=== PATIENT | male | born 1980 | race Caucasian/White ===

== ENCOUNTER 2016-05-16 23:32 | Inpatient (IN) | payer MEDICARE ==
[2016-05-16] MEDS ORDERED: ASPIRIN 81 MG CHEWABLE TABLETS PO ONE (23:46)
--- NOTE | 2016-05-16 23:46 | PDOC ---
History of Present Illness <Liane Olvera - Last Filed: 05/17/16 00:13> <Marley Morales - Last Filed: 05/17/16 02:01> - General Stated Complaint: CHEST PAIN Time Seen by Provider: 05/16/16 23:38 - History of Present Illness Initial Comments: 05/16/16 23:49 The patient is a 35 year old male with no past medical hx who presents to the ED complaining of palpitations since this evening. 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 He states he had some coffee at 20:00 this evening and started to feel palpitations shortly after. He denies any any associated chest pain, SOB, nausea, and vomiting. The patient states he has never experienced this in the past. The patient denies fever, chills Allergies: NKDA (Liane Olvera) Past History <Liane Olvera - Last Filed: 05/17/16 00:13> <Marley Morales - Last Filed: 05/17/16 02:01> - Past Medical History Allergies/Adverse Reactions: Allergies Allergy/AdvReac Type Severity Reaction Status Date / Time No Known Allergies Allergy Verified 05/17/16 00:02 Home Medications: Ambulatory Orders NK [No Known Home Medication] 05/17/16 Review of Systems - Review of Systems Able to Perform ROS?: Yes <Liane Olvera - Last Filed: 05/17/16 00:13> <Marley Morales - Last Filed: 05/17/16 02:01> - Review of Systems Comments:: 05/16/16 23:50 CONSTITUTIONAL: Absent: fever, chills, diaphoresis, generalized weakness, malaise, loss of appetite HEENT: Absent: rhinorrhea, nasal congestion, throat pain, throat swelling, difficulty swallowing, mouth swelling, ear pain, eye pain, visual Changes CARDIOVASCULAR: +Palpitations. Absent: chest pain, syncope, irregular heart rate, lightheadedness, peripheral edema RESPIRATORY: Absent: cough, shortness of breath, dyspnea with exertion, orthopnea, wheezing, stridor, hemoptysis GASTROINTESTINAL: Absent: abdominal pain, abdominal distension, nausea, vomiting, diarrhea, constipation, melena, hematochezia GENITOURINARY: Absent: dysuria, frequency, urgency, hesitancy, hematuria, flank pain, genital pain MUSCULOSKELETAL: Absent: myalgia, arthralgia, joint swelling SKIN: Absent: rash, itching, pallor NEUROLOGIC: Absent: headache, focal weakness or paresthesias, dizziness, unsteady gait, seizure, mental status changes, bladder or bowel incontinence PSYCHIATRIC: Absent: anxiety, depression, suicidal or homicidal ideation, hallucinations. (Liane Olvera) *Physical Exam <Liane Olvera - Last Filed: 05/17/16 00:13> <Marley Morales - Last Filed: 05/17/16 02:01> - Vital Signs Last Vital Signs Temp Pulse Resp BP Pulse Ox 97.9 F 99 H 16 141/79 97 05/16/16 23:45 05/17/16 00:36 05/17/16 00:36 05/17/16 00:36 05/17/16 00:36 - Physical Exam Comments: 05/16/16 23:51 GENERAL: +Tremulous. Well developed, well nourished. Awake and alert. No acute distress. HEENT: +Pterygium right eye. Normocephalic, atraumatic. PERRLA, EOMI. No conjunctival pallor. Moist mucous membranes. Oropharynx is clear. NECK: Supple. Full ROM. No JVD. Carotid pulses 2+ and symmetric, without bruits. No thyromegaly. No lymphadenopathy. CARDIOVASCULAR: +Tachycardic. Regular rhythm. No murmurs, rubs, or gallops. Distal pulses are 2 + and symmetric. PULMONARY: No evidence of respiratory distress. Lungs clear to auscultation bilaterally. No wheezing, rales or rhonchi. ABDOMINAL: Soft. Non-tender. Non-distended. No rebound or guarding. No organomegaly. Normoactive bowel sounds. MUSCULOSKELETAL Normal range of motion at all joints. No bony deformities or tenderness. No CVA tenderness. EXTREMITIES: No cyanosis. No clubbing. No edema. No calf tenderness. SKIN: Warm and dry. Normal capillary refill. No rashes. No jaundice. NEUROLOGICAL: Alert, awake, appropriate. Cranial nerves 2-12 intact. No deficits to light touch and temperature in face, upper extremities and lower extremities. No motor deficits in the in face, upper extremities and lower extremities. PSYCHIATRIC: Cooperative. Good eye contact. Appropriate mood and affect. (Liane Olvera) Heart Score/ECG Review <Liane Olvera - Last Filed: 05/17/16 00:13> <Marley Morales - Last Filed: 05/17/16 02:01> - ECG Impressions Comment:: 05/17/16 00:13 EKG Tachycardic at a rate of 120 BPM Incomplete RBBB T wave abnormalities (Liane Olvera) ED Treatment Course - LABORATORY CBC & Chemistry Diagram: 05/16/16 23:53 05/16/16 23:53 <Laine Olvera - Last Filed: 05/17/16 00:13> - LABORATORY CBC & Chemistry Diagram: 05/16/16 23:53 05/16/16 23:53 <Marley Morales - Last Filed: 05/17/16 02:01> - ADDITIONAL ORDERS Additional order review: Laboratory Results 05/16/16 05/16/16 05/16/16 23:53 23:53 23:53 INR 1.25 H D-Dimer 208 Sodium 135 L Potassium 3.0 L Chloride 95 L Carbon Dioxide 21 Anion Gap 19 H BUN 8 Creatinine 0.8 Creat Clearance w eGFR > 60 Random Glucose 269 H Calcium 8.1 L Magnesium 1.3 L Total Bilirubin 0.5 AST 117 H ALT 86 H Alkaline Phosphatase 208 H Creatine Kinase 415 H Creatine Kinase Index 1.5 CK-MB (CK-2) 6.538 H CK-MB (CK-2) Rel Index Cancelled Troponin I < 0.02 B-Natriuretic Peptide 8.27 Total Protein 8.0 Albumin 3.6 Lipase 184 05/16/16 23:53 RBC 4.52 MCV 93.3 MCHC 33.8 RDW 13.1 MPV 8.5 Neutrophils % 79.3 Lymphocytes % 11.2 Monocytes % 8.5 Eosinophils % 0.3 Basophils % 0.7 - RADIOLOGY Radiology Studies Ordered: Category Date Time Status CHEST X-RAY PORTABLE* [RAD] Stat Radiology 05/17/16 00:15 Taken - Medications Given in the ED: ED Medications Discontinued Medications Generic Name Dose Route Start Last Admin Trade Name Freq PRN Reason Stop Dose Admin Chlordiazepoxide HCl 25 mg 05/17/16 00:16 05/17/16 00:17 Librium - PO 05/17/16 00:17 25 mg NOW ONE Administration Potassium Chloride 40 meq 05/17/16 00:52 05/17/16 00:52 K-Dur - PO 05/17/16 00:53 40 meq NOW ONE Administration Medical Decision Making <Liane Olvera - Last Filed: 05/17/16 00:13> <Marley Morales - Last Filed: 05/17/16 02:01> - Medical Decision Making 05/17/16 01:43 35 yo male p/w tachycardia and tremulousness that started this evening. He thinks it's due to drinking too much coffee -he was working delivering food social history- no tobacco use, drinks etoh every day. 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 He denied shortness of breath -he did say he had pinching discomfort in left chest, no radiation -negative cardiac enzymes cxr no infiltrates,no ptx,no effusions -LABS REVIEWED found to be hypokalemic and received potassium supplementation -glucose is elevated -LFTs are elevated cbc- pt has thromcytopenia concern for alcohol withdrawal, pt given librium IMP- 1)CHEST PAIN 2) ALCOHOL WITHDRAWAL WITH DELIRIUM TREMORS 3) HYPERGLYCEMIA 4)HYPOKALEMIA SPOKE W DR Mg AND PT ADMITTED TO TELEMETRY (Marley Morales) *DC/Admit/Observation/Transfer <Liane Olvera - Last Filed: 05/17/16 00:13> - Discharge Dispostion Admit: Yes <Marley Morales - Last Filed: 05/17/16 02:01> Diagnosis at time of Disposition: Tachycardia, Hyperglycemia, Elevated LFTs, Hypokalemia, Other secondary thrombocytopenia, Delirium tremens - Discharge Dispostion Decision to Admit order Date/Time: Decision to Admit Order Category Date Time Status Decision to Admit to Hospital Routine Admission 05/17/16 01:27 Active - Attestations Scribe Attestion: 05/16/16 23:50 Documentation prepared by Liane Olvera, acting as medical radiation tech for Marley Morales MD/. (Liane Olvera)
[2016-05-16 23:47] VITALS: BMI 37.1
[2016-05-16] MEDS ORDERED: METOPROLOL TARTRATE 5 MG/5 ML VIAL IVPUSH ONE (23:50)
[2016-05-17 00:05] LABS: BASOPHIL 0.7 % (0-2.0); EOSINOPHIL 0.3 % (0-4.5); MCH 31.5 pg (25.7-33.7); MCHC 33.8 g/dl (32.0-35.9); MEAN CELL VOLUME 93.3 fl (80-96); MEAN PLT VOLUME 8.5 fl (7.5-11.1); NEUTROPHILS 79.3 % (42.8-82.8); PLATELET COUNT 82 K/MM3 (134-434); RDW 13.1 % (11.9-15.9); WHITE BLOOD COUNT 8.4 K/mm3 (4.0-10.0)
[2016-05-17] MEDS ORDERED: chlordiazePOXIDE HCL 25 MG CAPSULE ONE ×2 (00:14→11:36)
[2016-05-17] MEDS ORDERED: chlordiazePOXIDE HCL 25 MG CAPSULE PO ONE ×2 (00:16→01:25)
[2016-05-17 00:27] LABS: ALBUMIN 3.6 g/dl (3.4-5.0); ANION GAP 19 (8-16); BILIRUBIN,TOTAL 0.5 mg/dL (0.2-1.0); CALCIUM 8.1 mg/dL (8.5-10.1); CO2 21 mmol/L (21-32); CREATININE 0.8 mg/dL (0.7-1.3); GLUCOSE,RANDOM 269 mg/dL (74-106); MAGNESIUM 1.3 mg/dL (1.8-2.4); SGOT/AST 117 U/L (15-37); SGPT/ALT 86 U/L (12-78)
[2016-05-17 00:30] LABS: ALK PHOS 208 U/L (45-117); TROPONIN I < 0.02 ng/ml (0.00-0.05)
[2016-05-17 00:43] LABS: INR 1.25 (0.82-1.09); PROTHROMBIN TIME (PATIENT) 13.8 SEC (9.98-11.88)
[2016-05-17] MEDS ORDERED: POTASSIUM CHLORIDE TABS 20 MEQ TABLET.ER (FP) PO ONE (00:52)
[2016-05-17] MEDS ORDERED: POTASSIUM CHLORIDE 40 MEQ/30 ML UNIT DOSE CUP ONE ×2 (00:54→11:36)
[2016-05-17] MEDS ORDERED: chlordiazePOXIDE HCL 25 MG CAPSULE PO PRN (01:26)
[2016-05-17] MEDS ORDERED: MAGNESIUM SULF 50% (8.12 MEQ/2 ML-1 GM VIAL) IVPB ONE (01:35)
--- NOTE | 2016-05-17 01:46 | PN ---
<Roman Branhamjd - Last Filed: 05/17/16 01:46> Teaching Attending Note Name of Resident: Jonh Barrera ATTENDING PHYSICIAN STATEMENT I saw and evaluated the patient. I reviewed the resident's note and discussed the case with the resident. I agree with the resident's findings and plan as documented. SUBJECTIVE: OBJECTIVE: ASSESSMENT AND PLAN: <Marissa Fink - Last Filed: 05/17/16 02:45> Teaching Attending Note ATTENDING PHYSICIAN STATEMENT I saw and evaluated the patient. I reviewed the resident's note and discussed the case with the resident. I agree with the resident's findings and plan as documented. SUBJECTIVE: Patient is a 35 year old male with no past medical history who presented to the ED with palpitations after drinking coffee. Patient notes that he drinks 4-6 beers daily and his last drink was today and he also drank 32 oz of coffee. He notes that he developed palpitations and tremors shortly after drinking coffee. No cp, SOB or chest pressure. No lightheadedness, dizziness, blurry vision, vision changes, headache, fever, chills, vomiting, diarrhea or nausea. OBJECTIVE: VS: Last Vital Signs Temp Pulse Resp BP Pulse Ox 97.9 F 99 H 16 141/79 97 05/16/16 23:45 05/17/16 00:36 05/17/16 00:36 05/17/16 00:36 05/17/16 00:36 GEN: NAD HEENT: +Pterygium bilaterally, +acanthosis nigrans neck region. CARD: RRR, S1 S2 RESP: CTAB ABD: NT, BWS x4 EXT: -CCE, +tremulousness of bilateral upper extremities LABS: CBCD WBC 8.4 K/mm3 (4.0-10.0) 05/16/16 23:53 RBC 4.52 M/mm3 (4.00-5.60) 05/16/16 23:53 Hgb 14.2 GM/dL (11.7-16.9) 05/16/16 23:53 Hct 42.1 % (35.4-49) 05/16/16 23:53 MCV 93.3 fl (80-96) 05/16/16 23:53 MCHC 33.8 g/dl (32.0-35.9) 05/16/16 23:53 RDW 13.1 % (11.9-15.9) 05/16/16 23:53 Plt Count 82 K/MM3 (134-434) L 05/16/16 23:53 MPV 8.5 fl (7.5-11.1) 05/16/16 23:53 CMP Sodium 135 mmol/L (136-145) L 05/16/16 23:53 Potassium 3.0 mmol/L (3.5-5.1) L 05/16/16 23:53 Chloride 95 mmol/L (98-107) L 05/16/16 23:53 Carbon Dioxide 21 mmol/L (21-32) 05/16/16 23:53 Anion Gap 19 (8-16) H 05/16/16 23:53 BUN 8 mg/dL (7-18) 05/16/16 23:53 Creatinine 0.8 mg/dL (0.7-1.3) 05/16/16 23:53 Creat Clearance w eGFR > 60 (>60) 05/16/16 23:53 Calcium 8.1 mg/dL (8.5-10.1) L 05/16/16 23:53 Total Bilirubin 0.5 mg/dL (0.2-1.0) 05/16/16 23:53 AST 117 U/L (15-37) H 05/16/16 23:53 ALT 86 U/L (12-78) H 05/16/16 23:53 Alkaline Phosphatase 208 U/L (45-117) H 05/16/16 23:53 Total Protein 8.0 g/dl (6.4-8.2) 05/16/16 23:53 Albumin 3.6 g/dl (3.4-5.0) 05/16/16 23:53 ECG Sinus tachycardia Vent rate 120 Incomplete right bundle branch block ASSESSMENT AND PLAN: 35 year old male with no past medical history presents with palpitations found to be in sinus tachycardia and acute tremors with hx of alcohol abuse. 1. EtOH withdrawal - Librium protocol - CIWA - Detox consult - Banana bag - Thiamine 100 mg daily - Folic acid 1 mg daily 2. Hyperglycemia - Check A1C - ACHS Q4 3. Transaminitis - Hepatitis panel - Hepatic US - Most likely due to alcohol 4. Thrombocytopenia - Most likely due to alcohol liver dysfunction - Mild - Trend 5. DVT ppx - Low risk ambulate/SCDs Documentation prepared by GOYO YuanIBDavon, acting as medical delivery technician for Larissa Branham D.O., MD.
[2016-05-17] MEDS ORDERED: FOLIC ACID INJECTION - 1 MG, THIAMINE HCL 100 MG, MULTIVIT INJECTION ADULT 10 ML in SOD... IVPB ONE ×2 (02:00→02:08)
[2016-05-17] MEDS ORDERED: MAGNESIUM SULF 50% (8.12 MEQ/2 ML-1 GM VIAL) ONE (02:12)
--- NOTE | 2016-05-17 02:20 | HP ---
CHIEF COMPLAINT: palpitations HISTORY OF PRESENT ILLNESS: 35 y/o male with no past medical history came to hospital with a complain of palpitations which started around 9: 30pm and decreased after getting Lopressor in ED. Patient states that he drink 6 can of beer every day and and when he drinks coffee on top of it he develops palpitations and tremors. But today they were mor than last time so he came to ED. He also states that he sweats a lot, feel hot and his palm are always moist. Denies chest pain, sob, lightheadedness, dizziness, nausea, vomiting, burning micturation. Denies swelling in legs, yellow discoloration of eyes, denies. Denies easy bleeding. ER course was notable for: (1) cbc , cmp, (2)lopressor Recent Travel: no PAST MEDICAL HISTORY: no PAST SURGICAL HISTORY: no Social History: Smokin cig every day Alcohol: 6 cans every day since 2004 Drugs: no Family History: mother thyroid problem, Allergies No Known Allergies Allergy (Verified 05/17/16 00:02) HOME MEDICATIONS: Home Medications Medication Instructions Recorded NK [No Known Home Medication] 05/17/16 REVIEW OF SYSTEMS CONSTITUTIONAL: Absent: fever, chills, diaphoresis, generalized weakness, malaise, loss of appetite, weight change HEENT: Absent: rhinorrhea, nasal congestion, throat pain, throat swelling, difficulty swallowing, mouth swelling, ear pain, eye pain, visual changes CARDIOVASCULAR: Absent: chest pain, syncope, palpitations, irregular heart rate, lightheadedness , peripheral edema RESPIRATORY: Absent: cough, shortness of breath, dyspnea with exertion, orthopnea, wheezing, stridor, hemoptysis GASTROINTESTINAL: Absent: abdominal pain, abdominal distension, nausea, vomiting, diarrhea, constipation, melena, hematochezia GENITOURINARY: Absent: dysuria, frequency, urgency, hesitancy, hematuria, flank pain, genital pain MUSCULOSKELETAL: Absent: myalgia, arthralgia, joint swelling, back pain, neck pain SKIN: Absent: rash, itching, pallor HEMATOLOGIC/IMMUNOLOGIC: Absent: easy bleeding, easy bruising, lymphadenopathy, frequent infections ENDOCRINE: Absent: unexplained weight gain, unexplained weight loss, heat intolerance, cold intolerance NEUROLOGIC: Absent: headache, focal weakness or paresthesias, dizziness, unsteady gait, seizure, mental status changes, bladder or bowel incontinence PSYCHIATRIC: Absent: anxiety, depression, suicidal or homicidal ideation, hallucinations. PHYSICAL EXAMINATION GENERAL: Awake, alert, and fully oriented, in no acute distress. HEAD: Normal with no signs of trauma. EYES: pterygium in b/l eyes EARS, NOSE, THROAT: Ears normal, nares patent, oropharynx clear without exudates. DRy mucous membranes. NECK: Normal range of motion, supple without lymphadenopathy, JVD, or masses. acanthosis nigrans present on neck LUNGS: Breath sounds equal, clear to auscultation bilaterally. No wheezes, and no crackles. No accessory muscle use. HEART: Regular rate and rhythm, normal S1 and S2 without murmur, rub or gallop. ABDOMEN: Soft, nontender, not distended, normoactive bowel sounds, no guarding, no rebound, no masses. lower border of liver 1 cm below coastal margin, MUSCULOSKELETAL: Normal range of motion at all joints. No bony deformities or tenderness. No CVA tenderness. UPPER EXTREMITIES: 2+ pulses, warm, well-perfused. No cyanosis. No clubbing. Cap refill <2 seconds. No peripheral edema. tremors in b/l hand, moist to touch LOWER EXTREMITIES: 2+ pulses, warm, well-perfused. No calf tenderness. No peripheral edema. NEUROLOGICAL: Cranial nerves II-XII intact. Normal speech. Normal gait. PSYCHIATRIC: Cooperative. Good eye contact. Appropriate mood and affect. SKIN: Warm, dry, normal turgor, no rashes or lesions noted. ASSESSMENT/PLAN: 35 y/o alcoholic male with no past medical history came to hospital with a complain of palpitations after having coffee. Palpitations could be due to coffee, thyroid, alcohol syndrome, cardiogenic started on librium protocol thiamine 100mg po bid cardiac monitoring follow trop i follow tsh monitor vitals follow urine toxicology admit in tele Transaminitis could be due to alcohal liver ds follow liver function follow usg liver Thrombocytopenia could be secondary to liver ds follow platelets Hyperglycemeia with acanthosis nigricans Follow HbA1c Diabetic diet electrolyte imbalance hypokalemia and hypomagnesemia given kcl and mg in ed repeat electrolyte in am Fluid : on banana bag and ns 75 ml/hr electrolyte ; repeat in am nutrition diabetic diet dvt pro : not required due to thrombocytopenia, patient ambulatory gi pro : not required Dispo ; admit in tele Visit type - Emergency Visit Emergency Visit: Yes ED Registration Date: 05/17/16 Care time: The patient presented to the Emergency Department on the above date and was hospitalized for further evaluation of their emergent condition. - New Patient This patient is new to me today: Yes Date on this admission: 05/17/16 - Critical Care Critical Care patient: No
[2016-05-17] MEDS ORDERED: SODIUM CHLORIDE 1,000 ML IV SCH (02:30)
[2016-05-17 03:04] LABS: PLATELET COMMENT2 NO CLOTTING DETECTED; PLATELET ESTIMATE SLT DECREASED (NORMAL)
[2016-05-17] MEDS: chlordiazePOXIDE HCL 25 MG CAPSULE PO SCH ×2 (04:57→11:39)
[2016-05-17 05:36] LABS: URINE MARIJUANA THC NEGATIVE ng/ml (CUTOFF=50)
[2016-05-17 07:36] LABS: ALBUMIN 3.5 g/dl (3.4-5.0); ANION GAP 10 (8-16); CALCIUM 8.3 mg/dL (8.5-10.1); CO2 28 mmol/L (21-32); CREATININE 0.7 mg/dL (0.7-1.3); GLUCOSE,RANDOM 202 mg/dL (74-106); SGOT/AST 96 U/L (15-37); SGPT/ALT 79 U/L (12-78)
[2016-05-17 07:46] LABS: ALK PHOS 183 U/L (45-117); BILIRUBIN,TOTAL 0.9 mg/dL (0.2-1.0); THYROID STIMULATING HORMONE 0.66 uIU/ml (0.358-3.74); TOT PROT 7.9 g/dl (6.4-8.2)
[2016-05-17] MEDS ORDERED: POTASSIUM CHLORIDE 40 MEQ/30 ML UNIT DOSE CUP PO ONE (09:30)
[2016-05-17] MEDS ORDERED: THIAMINE HCL 100 MG TABLET (FP) PO SCH (10:00)
--- NOTE | 2016-05-17 14:00 | CON.CARD ---
Consult Consult Specialty:: Cardiology Referred by:: Hospitalist Medicine Reason for Consultation:: Palpitations - History of Present Illness Chief Complaint: Palpitations History of Present Illness: 35 y/o male with h/o ETOH dependence presented with palpitations and tremulousness decreased after getting Lopressor in ED. Patient states that he drink 6 cans of beer every day and and when he drinks coffee on top of it. He denies chest pain, dyspnea, near or true syncope, orthopnea, PND or LE edema. - History Source History Provided By: Patient Limitations to Obtaining History: No Limitations - Alcohol/Substance Use Hx Alcohol Use: Yes (6 BEERS DAILY-LAST DRINK TU) - Smoking History Smoking history: Current every day smoker Have you smoked in the past 12 months: No Aproximately how many cigarettes per day: 6 Home Medications - Allergies Allergies/Adverse Reactions: Allergies Allergy/AdvReac Type Severity Reaction Status Date / Time No Known Allergies Allergy Verified 05/17/16 00:02 - Home Medications Home Medications: Ambulatory Orders NK [No Known Home Medication] 05/17/16 Review of Systems - Review of Systems Cardiovascular: reports: Palpitations Vital Signs: Vital Signs Temperature 98 F 05/17/16 05:38 Pulse Rate 77 05/17/16 13:09 Respiratory Rate 14 05/17/16 13:09 Blood Pressure 127/80 05/17/16 13:09 O2 Sat by Pulse Oximetry (%) 97 05/17/16 13:09 Constitutional: Yes: No Distress, Calm Neck: Yes: Supple Respiratory: Yes: Regular, CTA Bilaterally Gastrointestinal: Yes: Normal Bowel Sounds, Soft Cardiovascular: Yes: Regular Rate and Rhythm JVD: No Carotid Bruit: No Heart Sounds: Yes: S1, S2 Murmur: Yes: Systolic Murmur, Grade 1 Edema: No - Other Data Labs, Other Data: CBC, BMP 05/17/16 06:15 INR, PTT INR 1.25 (0.82-1.09) H 05/16/16 23:53 Troponin, BNP 05/17/16 05/17/16 06:15 12:52 Troponin I < 0.02 < 0.02 Troponin, BNP 05/17/16 05/17/16 06:15 12:52 Troponin I < 0.02 < 0.02 NSR Echo: Pending Imaging - Results Chest X-ray: Report Reviewed (NAD) Ultrasound: Report Reviewed (Hepatocellular disease suspect Alcohol hepatitis) Problem List - Problems (1) Elevated LFTs Code(s): R79.89 - OTHER SPECIFIED ABNORMAL FINDINGS OF BLOOD CHEMISTRY (2) Hypokalemia Code(s): E87.6 - HYPOKALEMIA (3) Other secondary thrombocytopenia Code(s): D69.59 - OTHER SECONDARY THROMBOCYTOPENIA (4) Alcohol dependence Code(s): F10.20 - ALCOHOL DEPENDENCE, UNCOMPLICATED Qualifiers: Substance use status: in withdrawal Complication of substance-induced condition: uncomplicated Qualified Code(s): F10.230 - Alcohol dependence with withdrawal, uncomplicated (5) Alcohol withdrawal Code(s): F10.239 - ALCOHOL DEPENDENCE WITH WITHDRAWAL, UNSPECIFIED Qualifiers : Complication of substance-induced condition: uncomplicated Qualified Code(s): F10.230 - Alcohol dependence with withdrawal, uncomplicated (6) Palpitations Code(s): R00.2 - PALPITATIONS (7) Alcoholic hepatitis Code(s): K70.10 - ALCOHOLIC HEPATITIS WITHOUT ASCITES Qualifiers: Ascites presence: without ascites Qualified Code(s): K70.10 - Alcoholic hepatitis without ascites (8) Type 2 diabetes mellitus Code(s): E11.9 - TYPE 2 DIABETES MELLITUS WITHOUT COMPLICATIONS Qualifiers: Diabetes mellitus complication status: without complication Diabetes mellitus terminologist insulin use: without terminologist use Qualified Code(s): E11.9 - Type 2 diabetes mellitus without complications Assessment/Plan 1. Palpitations and tremulousness referable to ETOH withdrawal 2. ETOH dependence 3. ETOH hepatitis 4. Thrombocytopenia referable to ETOH 5. Type 2 DM not well controlled P:1. F/u echocardiogram to assess LV and valve fxn 2. Beta blockers as you are 3. Tele monitor to eval for sustained arrhythmia, r/o PAF 4. Replete electrolytes, librium detox, vitamins 5. Thank you for consultative opportunity
--- NOTE | 2016-05-17 14:10 | EKG ---
Test Reason : Blood Pressure : / mmHG Vent. Rate : 079 BPM Atrial Rate : 079 BPM P-R Int : 188 ms QRS Dur : 098 ms QT Int : 392 ms P-R-T Axes : 039 056 013 degrees QTc Int : 449 ms NORMAL SINUS RHYTHM NORMAL ECG WHEN COMPARED WITH ECG OF 17-MAY-2016 00:27, NO SIGNIFICANT CHANGE WAS FOUND Confirmed by ALONDRA TILLEY MD ([id number]) on 05/17/2016 2:09:28 PM Referred By: Tito MULTANI Confirmed By:ALONDRA TILLEY MD
--- NOTE | 2016-05-17 14:12 | EKG ---
Test Reason : Blood Pressure : / mmHG Vent. Rate : 120 BPM Atrial Rate : 120 BPM P-R Int : 172 ms QRS Dur : 102 ms QT Int : 314 ms P-R-T Axes : 063 072 002 degrees QTc Int : 443 ms SINUS TACHYCARDIA POSSIBLE LEFT ATRIAL ENLARGEMENT INCOMPLETE RIGHT BUNDLE BRANCH BLOCK T WAVE ABNORMALITY, CONSIDER INFERIOR ISCHEMIA ABNORMAL ECG WHEN COMPARED WITH ECG OF 20-JUL-2008 16:07, VENT. RATE HAS INCREASED BY 58 BPM NON-SPECIFIC CHANGE IN ST SEGMENT IN LATERAL LEADS NONSPECIFIC T WAVE ABNORMALITY NOW EVIDENT IN LATERAL LEADS Confirmed by TREVA WERNER, ALONDRA ([id number]) on 05/17/2016 2:11:36 PM Referred By: Confirmed By:ALONDRA TILLEY MD
[2016-05-17] MEDS ORDERED: METOPROLOL SUCCINATE 25 MG TAB.SR.24H (FP) PO SCH (14:30)
--- NOTE | 2016-05-17 17:38 | DS ---
Physical Exam: SUBJECTIVE: Patient seen and examined OBJECTIVE: Vital Signs Period Temp Pulse Resp BP Sys/Thurman Pulse Ox Last 24 Hr 98 F 75-88 14-20 127-142/72-84 97-98 PHYSICAL EXAM GENERAL: The patient is awake, alert, and fully oriented, in no acute distress. HEAD: Normal with no signs of trauma. EYES: PERRL, extraocular movements intact, sclera anicteric, conjunctiva clear. ENT: Ears normal, nares patent, oropharynx clear without exudates, moist mucous membranes. NECK: Trachea midline, full range of motion, supple. LUNGS: Breath sounds equal, clear to auscultation bilaterally, no wheezes, no crackles, no accessory muscle use. HEART: Regular rate and rhythm, S1, S2 without murmur, rub or gallop. ABDOMEN: Soft, nontender, nondistended, normoactive bowel sounds, no guarding, no rebound, no hepatosplenomegaly, no masses. EXTREMITIES: 2+ pulses, warm, well-perfused, no edema. NEUROLOGICAL: Cranial nerves II through XII grossly intact. Normal speech, gait not observed. PSYCH: Normal mood, normal affect. SKIN: Warm, dry, normal turgor, no rashes or lesions noted. LABS Laboratory Results - last 24 hr 05/17/16 05/17/16 05/17/16 05:00 06:15 06:15 Sodium 137 Potassium 3.4 L Chloride 99 Carbon Dioxide 28 D Anion Gap 10 BUN 6 L D Creatinine 0.7 Creat Clearance w eGFR > 60 Random Glucose 202 H D Hemoglobin A1c % 9.4 H Calcium 8.3 L Magnesium 2.0 D Total Bilirubin 0.9 D AST 96 H ALT 79 H Alkaline Phosphatase 183 H Troponin I Total Protein 7.9 Albumin 3.5 TSH 0.66 Opiates Screen Negative Methadone Screen Negative Barbiturate Screen Negative Phencyclidine Screen Negative Ur Amphetamines Screen Negative MDMA (Ecstasy) Screen Negative Benzodiazepines Screen Negative Cocaine Screen Negative U Marijuana (THC) Screen Negative 05/17/16 05/17/16 06:15 12:52 Sodium Potassium Chloride Carbon Dioxide Anion Gap BUN Creatinine Creat Clearance w eGFR Random Glucose Hemoglobin A1c % Calcium Magnesium Total Bilirubin AST ALT Alkaline Phosphatase Troponin I < 0.02 < 0.02 Total Protein Albumin TSH Opiates Screen Methadone Screen Barbiturate Screen Phencyclidine Screen Ur Amphetamines Screen MDMA (Ecstasy) Screen Benzodiazepines Screen Cocaine Screen U Marijuana (THC) Screen HOSPITAL COURSE: Date of Admission:05/17/16 Date of Discharge: 05/17/16 Discharge Summary Reason For Visit: TACHYCARDIA,HYPERGLYCEMIA, ELEVATED LFT'S Current Active Problems Alcohol dependence (Acute) Alcohol withdrawal (Acute) Alcoholic hepatitis (Acute) Delirium tremens (Acute) Elevated LFTs (Acute) Hyperglycemia (Acute) Hypokalemia (Acute) Other secondary thrombocytopenia (Acute) Palpitations (Acute) Tachycardia (Acute) Type 2 diabetes mellitus (Acute) Condition: Stable - Instructions Diet, Activity, Other Instructions: Please return to the ED for any new, persistent, or worsening symptoms. Follow up with your doctor in 1 week, referral enclosed 2 [facility] [place] the clinic is called [facility] care Follow up with shaker tender in 1 week, you will need your doctor to give you a referral for further work up, you will need a holter monitoring of your heart rhythm Stop drinking alcohol it is affecting your liver and your heart. You have uncontrolled diabetes and will need to see your primary care doctor for close follow up. You will also need to start exercising and eating healthy foods. No more greasy, fatty, or high salt foods. Referrals: Maricruz Rodriges MD [Staff Physician] - Disposition: HOME
[2016-05-17 17:43] VITALS: BP 133/91; PULSE 81; TEMP 97.8
--- NOTE | 2016-05-17 18:08 | PN ---
[facility] Progress Note Note: Pt. was d/c home before he was seen.
[2016-05-18] MEDS ORDERED: chlordiazePOXIDE HCL 25 MG CAPSULE PO SCH (05:00)
--- NOTE | 2016-05-18 10:56 | EKG ---
Test Reason : Blood Pressure : / mmHG Vent. Rate : 099 BPM Atrial Rate : 099 BPM P-R Int : 182 ms QRS Dur : 102 ms QT Int : 354 ms P-R-T Axes : 036 056 -05 degrees QTc Int : 454 ms NORMAL SINUS RHYTHM POSSIBLE LEFT ATRIAL ENLARGEMENT INCOMPLETE RIGHT BUNDLE BRANCH BLOCK T WAVE ABNORMALITY, CONSIDER INFERIOR ISCHEMIA ABNORMAL ECG WHEN COMPARED WITH ECG OF 16-MAY-2016 23:37, NON-SPECIFIC CHANGE IN ST SEGMENT IN ANTEROLATERAL LEADS Confirmed by ANNAMARIA KIRBY MD ([id number]) on 05/18/2016 10:55:58 AM Referred By: Confirmed By:ANNAMARIA KIRBY MD
[2016-05-19] MEDS ORDERED: chlordiazePOXIDE 5 MG CAPSULE PO SCH (05:00)
== END 2016-05-17 17:40 | disposition home or self-care (01) | DRG 201 ==
LOC: JER 23:32 → JERBED 05-17 01:27
PROVIDERS: ADMIT Internal Medicine; ATTEND Registered Nurse Emergency
DX: R00.2 Palpitations (principal); F10.231 Alcohol dependence with withdrawal delirium; D69.59 Other secondary thrombocytopenia; E83.42 Hypomagnesemia; E11.65 Type 2 diabetes mellitus with hyperglycemia; K70.10 Alcoholic hepatitis without ascites; E87.6 Hypokalemia; R74.0 Nonspecific elevation of levels of transaminase and lactic acid dehydrogenase [LDH]; Z72.0 Tobacco use; L83 Acanthosis nigricans
CPT/HCPCS: 36415; 71010-TC; 76705-TC; 80053; 80074; 80307; 82550; 82553; 83036; 83690; 83735; 83880; 84443; 84484; 85025; 85379; 85610; 93005; 93010; 93306-TC; 99285-25

== ENCOUNTER 2016-09-09 14:55 | Emergency (ER) | payer SELFPAY ==
[2016-09-09 14:59] VITALS: BMI 35.5
--- NOTE | 2016-09-09 15:32 | PDOC ---
History of Present Illness - General History Source: Patient Exam Limitations: No Limitations <Oralia Hu - Last Filed: 09/09/16 16:10> - General History Source: Patient Exam Limitations: No Limitations <Tay Tejadaole - Last Filed: 09/09/16 17:19> - General Chief Complaint: Palpitations Stated Complaint: CHEST PAIN Time Seen by Provider: 09/09/16 15:04 - History of Present Illness Initial Comments: 09/09/16 16:11 The patient is a 36 year old male with past medical history of NIDDM, EtOH abuse , and psoriasis who arrives to the ED secondary to an episode of palpitations which began at work about an hour ago. The patient states that the palpitations were very severe for the first five minutes but began to lessen in severity over the past hour. He reports feeling short of breath as well. The patient reports having similar episodes within the past month. 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 The patient denies any LOC or chest pain. He denies any fever, chills, nausea, vomiting, diarrhea, cough, or urinary symptoms. Surgical Hx: None Allergies: None Social Hx: EtOH abuse (2 glasses of wine yesterday), former smoker (quit this May), denies drug abuse PCP: Vic Da Silva ([facility]) Past History <Oralia Hu - Last Filed: 09/09/16 16:10> - Past Medical History Diabetes: Yes - Psycho/Social/Smoking Cessation Hx Anxiety: No Suicidal Ideation: No Smoking History: Never smoked Have you smoked in the past 12 months: Yes Number of Cigarettes Smoked Daily: 6 If you are a former smoker, when did you quit?: 2 MO 'Breaking Loose' booklet given: 05/17/16 Hx Alcohol Use: No Drug/Substance Use Hx: No Substance Use Type: None <Tanna Tejada - Last Filed: 09/09/16 17:19> - Past Medical History Allergies/Adverse Reactions: Allergies Allergy/AdvReac Type Severity Reaction Status Date / Time No Known Allergies Allergy Verified 09/09/16 14:58 Home Medications: Ambulatory Orders Folic Acid 1 mg PO DAILY 07/30/16 Metformin HCl 500 mg PO DAILY 07/30/16 Thiamine HCl [Vitamin B1] 100 mg PO DAILY 07/30/16 Review of Systems - Review of Systems Able to Perform ROS?: Yes All Other Systems: Reviewed and Negative <Oralia Hu - Last Filed: 09/09/16 16:10> <Tanna Tejada - Last Filed: 09/09/16 17:19> - Review of Systems Comments:: 09/09/16 16:11 GENERAL/CONSTITUTIONAL: No fever or chills. No weakness. HEAD, EYES, EARS, NOSE AND THROAT: No change in vision. No ear pain or discharge. No sore throat. CARDIOVASCULAR: No chest pain or shortness of breath. RESPIRATORY: Present: palpitations No cough, wheezing, or hemoptysis. GASTROINTESTINAL: No nausea, vomiting, diarrhea or constipation. GENITOURINARY: No dysuria, frequency, or change in urination. MUSCULOSKELETAL: No joint or muscle swelling or pain. No neck or back pain. SKIN: No rash NEUROLOGIC: No headache, vertigo, loss of consciousness, or change in strength/ sensation. ENDOCRINE: No increased thirst. No abnormal weight change. HEMATOLOGIC/LYMPHATIC: No anemia, easy bleeding, or history of blood clots. ALLERGIC/IMMUNOLOGIC: No hives or skin allergy. (Oralia Hu) *Physical Exam <Oralia Hu - Last Filed: 09/09/16 16:10> <Tanna Tejada - Last Filed: 09/09/16 17:19> - Vital Signs Last Vital Signs Temp Pulse Resp BP Pulse Ox 98.7 F 77 19 124/82 97 09/09/16 14:56 09/09/16 16:50 09/09/16 16:50 09/09/16 16:50 09/09/16 16:50 - Physical Exam Comments: 09/09/16 16:12 GENERAL: Awake, alert, and fully oriented, in no acute distress HEAD: No signs of trauma EYES: PERRLA, EOMI, sclera anicteric, conjunctiva clear ENT: Auricles normal inspection, hearing grossly normal, nares patent, oropharynx clear without exudates. Moist mucosa NECK: Normal ROM, supple, no lymphadenopathy, JVD, or masses LUNGS: Breath sounds equal, clear to auscultation bilaterally. No wheezes, and no crackles HEART: Regular rate and rhythm, normal S1 and S2, no murmurs, rubs or gallops ABDOMEN: Soft, nontender, normoactive bowel sounds. No guarding, no rebound. No masses EXTREMITIES: Normal range of motion, no edema. No clubbing or cyanosis. No cords, erythema, or tenderness NEUROLOGICAL: Cranial nerves II through XII grossly intact. Normal speech, normal gait SKIN: Deformity on the skin of the scalp. Warm, Dry, normal turgor. (Oralia Hu) Heart Score/ECG Review #1 ECG reviewed & interpreted by me at: 15:32 General ECG Interpretation: Sinus Rhythm, Normal Rate, Normal Intervals, No acute ischemic changes <Tanna Tejada - Last Filed: 09/09/16 17:19> ED Treatment Course - LABORATORY CBC & Chemistry Diagram: 09/09/16 15:26 09/09/16 15:26 <julesOralia - Last Filed: 09/09/16 16:10> - LABORATORY CBC & Chemistry Diagram: 09/09/16 15:26 09/09/16 15:26 <Tanna Tejada - Last Filed: 09/09/16 17:19> - ADDITIONAL ORDERS Additional order review: Laboratory Results 09/09/16 15:26 Sodium 142 Potassium 3.9 Chloride 107 Carbon Dioxide 25 Anion Gap 10 BUN 10 D Creatinine 0.7 Creat Clearance w eGFR > 60 Random Glucose 138 H Calcium 8.5 Total Bilirubin 0.3 D AST 58 H D ALT 77 D Alkaline Phosphatase 121 H D Total Protein 7.6 Albumin 3.8 09/09/16 15:26 RBC 4.30 MCV 92.6 MCHC 33.6 RDW 13.6 MPV 9.4 Neutrophils % 66.4 Lymphocytes % 22.5 D Monocytes % 8.2 Eosinophils % 1.9 D Basophils % 1.0 Medical Decision Making <julesOralia - Last Filed: 09/09/16 16:10> <Tanna Tejada - Last Filed: 09/09/16 17:19> - Medical Decision Making 09/09/16 15:26 A portion of this note was documented by scribe services under my direction. I have reviewed the details of the note, within reason, and agree with the documentation with the following case summary and management plan written by me. Nursing documentation reviewed and incorporated into medical decision making This is a 36-year-old male with a history of kym-[id number]-ioxksmhlg diabetes, possible psoriasis who presents to the emergency department with a complaint of palpitations. Patient states his symptoms were severe for approximately 5 minutes while at work but lasted possibly one hour. He had absolutely no chest pain. No When his heart was racing, he noted he was short of breath. He's had no fever no chills. No recent travel. Patient was admitted to the hospital for similar symptoms, seen by cardiology. Patient was then seen in the emergency department for the same thing. He has not followed up with cardiology as an outpatient. He did see his primary care physician who told him he needed his thyroid evaluated. He is scheduled for a follow-up appointment in September. No palpitations while his EKG was being performed On examination: RRR CTA No abd tenderness No lower extremity edema Pt has hypertrophic scalp on the back of his head Will do labs, EKG, TSH Re assess 09/09/16 16:37 Laboratory Tests 07/30/16 07/30/16 09/09/16 20:37 20:37 15:26 WBC 7.4 4.9 D Hgb 14.2 13.4 Hct 41.6 39.8 Plt Count 94 L 95 L Anion Gap 9 BUN Creatinine 0.8 Random Glucose 169 H AST 46 H D ALT 48 D 09/09/16 15:26 WBC Hgb Hct Plt Count Anion Gap 10 BUN 10 D Creatinine 0.7 Random Glucose 138 H AST 58 H D ALT 77 D 09/09/16 16:41 TSH pending Will (Tanna Tejada) *DC/Admit/Observation/Transfer <Oralia Hu - Last Filed: 09/09/16 16:10> - Discharge Dispostion Admit: No <Tanna Tejada - Last Filed: 09/09/16 17:19> Diagnosis at time of Disposition: Palpitations - Discharge Dispostion Disposition: HOME Condition at time of disposition: Stable - Referrals Referrals: Nir Duncan MD [Staff Physician] - - Patient Instructions Printed Discharge Instructions: DI for Palpitations Additional Instructions: Thank you for coming in to the ER today You need to follow up with your primary care physician You also need to follow up with the cleaning staff supervisor Return to the ER for any other concerns or complaints Print Language: PORTUGUESE - Attestations Scribe Attestion: 09/09/16 16:13 Documentation prepared by Oralia Hu, acting as neuropsychology medical consultant for Tanna Tejada MD. (Oralia Hu)
[2016-09-09 15:55] LABS: EOSINOPHIL 1.9 % (0-4.5); MCH 31.1 pg (25.7-33.7); MCHC 33.6 g/dl (32.0-35.9); MEAN CELL VOLUME 92.6 fl (80-96); MEAN PLT VOLUME 9.4 fl (7.5-11.1); NEUTROPHILS 66.4 % (42.8-82.8); PLATELET COUNT 95 K/MM3 (134-434); RDW 13.6 % (11.9-15.9); WHITE BLOOD COUNT 4.9 K/mm3 (4.0-10.0)
[2016-09-09 16:03] LABS: ALBUMIN 3.8 g/dl (3.4-5.0); ALK PHOS 121 U/L (45-117); ANION GAP 10 (8-16); BILIRUBIN,TOTAL 0.3 mg/dL (0.2-1.0); CALCIUM 8.5 mg/dL (8.5-10.1); CO2 25 mmol/L (21-32); CREATININE 0.7 mg/dL (0.7-1.3); GLUCOSE,RANDOM 138 mg/dL (74-106); SGOT/AST 58 U/L (15-37); SGPT/ALT 77 U/L (12-78); TOT PROT 7.6 g/dl (6.4-8.2)
[2016-09-09 17:43] VITALS: BP 125/81; PULSE 81; TEMP 98
[2016-09-09 17:52] LABS: THYROID STIMULATING HORMONE 0.39 uIU/ml (0.358-3.74)
--- NOTE | 2016-09-10 17:26 | EKG ---
Test Reason : Blood Pressure : / mmHG Vent. Rate : 094 BPM Atrial Rate : 094 BPM P-R Int : 180 ms QRS Dur : 088 ms QT Int : 338 ms P-R-T Axes : 042 057 015 degrees QTc Int : 422 ms NORMAL SINUS RHYTHM NORMAL ECG WHEN COMPARED WITH ECG OF 30-JUL-2016 18:20, NO SIGNIFICANT CHANGE WAS FOUND Confirmed by ALONDRA TILLEY MD ([id number]) on 09/10/2016 5:25:50 PM Referred By: Confirmed By:ALONDRA TILLEY MD
== END 2016-09-09 17:45 | disposition home or self-care (01) ==
LOC: JER 14:55
DX: R00.2 Palpitations (principal); E11.9 Type 2 diabetes mellitus without complications; Z79.84 Long term (current) use of oral hypoglycemic drugs
CPT/HCPCS: 36415; 80053; 84443; 85025; 93005; 93010; 99284-25

== ENCOUNTER 2016-10-03 20:43 | Emergency (ER) | payer SELFPAY ==
[2016-10-03 21:09] VITALS: BMI 35.5
[2016-10-03] MEDS ORDERED: ASPIRIN 81 MG CHEWABLE TABLETS PO ONE (22:33)
--- NOTE | 2016-10-03 22:33 | PDOC ---
History of Present Illness <Piper Silva - Last Filed: 10/04/16 00:28> <Marley Morales - Last Filed: 10/04/16 00:38> - General Chief Complaint: Palpitations Stated Complaint: PALPITATION Time Seen by Provider: 10/03/16 21:41 - History of Present Illness Initial Comments: 10/04/16 00:28 Patient is a 36 year old male with significant medical hx of NIDDM who is presenting to the ED with one day of palpitations. Patient reports that his symptoms began today today after having a few glasses of orange juice and a soda. He complains of feeling shaky and palpitations that feel as if his heart is racing. Patient denies any chest pain, shortness of breath, abdominal pain, lightheadedness, syncope, visual changes, nausea, or vomiting. The patient has been here on 09/09 for similar complaint. He received thyroid function test that day and TSH was normal. PCP: Maricruz Rivera MD (Piper Silva) Past History <Piper Silva - Last Filed: 10/04/16 00:28> - Past Medical History Diabetes: Yes - Psycho/Social/Smoking Cessation Hx Anxiety: No Suicidal Ideation: No Smoking History: Former smoker Have you smoked in the past 12 months: No Number of Cigarettes Smoked Daily: 6 If you are a former smoker, when did you quit?: 05/2015 Information on smoking cessation initiated: No 'Breaking Loose' booklet given: 05/17/16 Hx Alcohol Use: No Drug/Substance Use Hx: No Substance Use Type: None <Marley Morales - Last Filed: 10/04/16 00:38> - Past Medical History Allergies/Adverse Reactions: Allergies Allergy/AdvReac Type Severity Reaction Status Date / Time No Known Allergies Allergy Verified 09/09/16 14:58 Home Medications: Ambulatory Orders Folic Acid 1 mg PO DAILY 07/30/16 Metformin HCl 500 mg PO DAILY 07/30/16 Thiamine HCl [Vitamin B1] 100 mg PO DAILY 07/30/16 Review of Systems <Piper Silva - Last Filed: 10/04/16 00:28> <Marley Morales - Last Filed: 10/04/16 00:38> - Review of Systems Comments:: 10/04/16 00:33 CONSTITUTIONAL: Present: feeling "shaky" Absent: fever, chills, diaphoresis, generalized weakness, malaise, loss of appetite HEENT: Absent: rhinorrhea, nasal congestion, throat pain, throat swelling, difficulty swallowing, mouth swelling, ear pain, eye pain, visual changes CARDIOVASCULAR: Present: palpitations, irregular heart rate Absent: chest pain, syncope, lightheadedness, peripheral edema RESPIRATORY: Absent: cough, shortness of breath, dyspnea with exertion, orthopnea, wheezing, stridor, hemoptysis GASTROINTESTINAL: Absent: abdominal pain, abdominal distension, nausea, vomiting, diarrhea, constipation, melena, hematochezia GENITOURINARY: Absent: dysuria, frequency, urgency, hesitancy, hematuria, flank pain, genital pain MUSCULOSKELETAL: Absent: myalgia, arthralgia, joint swelling SKIN: Absent: rash, itching, pallor HEMATOLOGIC/IMMUNOLOGIC: Absent: easy bleeding, easy bruising, lymphadenopathy, frequent infections ENDOCRINE: Absent: unexplained weight gain, unexplained weight loss, heat intolerance, cold intolerance NEUROLOGIC: Absent: headache, focal weakness or paresthesia, dizziness, unsteady gait, seizure, mental status changes, bladder or bowel incontinence. PSYCHIATRIC: Absent: anxiety, depression, suicidal or homicidal ideation, hallucinations (Piper Silva) *Physical Exam <Piper Silva - Last Filed: 10/04/16 00:28> <Marley Morales - Last Filed: 10/04/16 00:38> - Vital Signs Last Vital Signs Temp Pulse Resp BP Pulse Ox 98.2 F 84 18 156/99 98 10/03/16 21:06 10/03/16 21:06 10/03/16 21:06 10/03/16 21:06 10/03/16 21:06 - Physical Exam Comments: 10/04/16 00:34 GENERAL: Well developed, well nourished. Awake and alert. No acute distress. HEENT: Normocephalic, atraumatic. PERRLA, EOMI. No conjunctival pallor. Bilateral pterygium. Sclera are non-icteric. Moist mucous membranes. Oropharynx is clear. NECK: Supple. Full ROM. No JVD. Carotid pulses 2+ and symmetric, without bruits. No thyromegaly. No lymphadenopathy. CARDIOVASCULAR: No tachycardia. Regular rate and rhythm. No murmurs, rubs, or gallops. Distal pulses are 2+ and symmetric. PULMONARY: No evidence of respiratory distress. Lungs clear to auscultation bilaterally. No wheezing, rales or rhonchi. ABDOMINAL: Soft. Non-tender. Non-distended. No rebound or guarding. No organomegaly. Normoactive bowel sounds. MUSCULOSKELETAL: Normal range of motion at all joints. No bony deformities or tenderness. No CVA tenderness. EXTREMITIES: No cyanosis. No clubbing. No edema. No calf tenderness. SKIN: Warm and dry. Normal capillary refill. No rashes. No jaundice. NEUROLOGICAL: Alert, awake, appropriate. Cranial nerves 2-12 intact. Normal speech. Gait is normal without ataxia. PSYCHIATRIC: Cooperative. Good eye contact. Appropriate mood and affect. (Piper Silva) Heart Score/ECG Review <Piper Silva - Last Filed: 10/04/16 00:28> <Marley Morales - Last Filed: 10/04/16 00:38> #1 10/04/16 00:35 Normal sinus rhythm at 64 bpm Down going in lead 3 (Piper Silva) ED Treatment Course - LABORATORY CBC & Chemistry Diagram: 10/03/16 23:41 10/03/16 23:41 <Piper Silva - Last Filed: 10/04/16 00:28> - LABORATORY CBC & Chemistry Diagram: 10/03/16 23:41 10/03/16 23:41 <Marley Morales - Last Filed: 10/04/16 00:38> - ADDITIONAL ORDERS Additional order review: Laboratory Results 10/03/16 10/03/16 23:41 23:41 INR 1.12 Sodium 139 Potassium 4.2 Chloride 101 Carbon Dioxide 29 Anion Gap 9 BUN 11 Creatinine 0.7 Creat Clearance w eGFR > 60 Random Glucose 100 D Calcium 8.8 Magnesium 2.0 D Total Bilirubin 0.5 D AST 40 H D ALT 57 D Alkaline Phosphatase 115 Creatine Kinase 106 Troponin I < 0.02 Total Protein 8.1 Albumin 4.1 10/03/16 23:41 RBC 4.70 MCV 91.8 MCHC 33.8 RDW 13.2 MPV 9.2 Neutrophils % 80.3 D Lymphocytes % 12.5 D Monocytes % 5.6 Eosinophils % 0.6 Basophils % 1.0 - RADIOLOGY Radiology Studies Ordered: Category Date Time Status CHEST X-RAY PORTABLE* [RAD] Stat Radiology 10/03/16 22:33 Taken - Medications Given in the ED: ED Medications Discontinued Medications Generic Name Dose Route Start Last Admin Trade Name [place] PRN Reason Stop Dose Admin Aspirin 162 mg 10/03/16 22:33 10/03/16 23:00 Asa - PO 10/03/16 22:34 162 mg ONCE ONE Administration *DC/Admit/Observation/Transfer <Piper Silva - Last Filed: 10/04/16 00:28> <Marley Morales - Last Filed: 10/04/16 00:38> Diagnosis at time of Disposition: Palpitations - Discharge Dispostion Disposition: HOME Condition at time of disposition: Stable - Referrals Referrals: Maricruz Rodriges MD [Primary Care Provider] - - Patient Instructions Printed Discharge Instructions: DI for Palpitations Additional Instructions: please followup with your regular physician - Attestations Scribe Attestion: 10/04/16 00:35 Documentation prepared by Piper Silva, acting as medical payment poster for Marley Morales MD. (Piper Silva)
[2016-10-03] MEDS ORDERED: ASPIRIN 81 MG CHEWABLE TABLETS ONE (23:43)
[2016-10-03 23:47] LABS: EOSINOPHIL 0.6 % (0-4.5); MCH 31.1 pg (25.7-33.7); MCHC 33.8 g/dl (32.0-35.9); MEAN CELL VOLUME 91.8 fl (80-96); MEAN PLT VOLUME 9.2 fl (7.5-11.1); NEUTROPHILS 80.3 % (42.8-82.8); PLATELET COUNT 107 K/MM3 (134-434); RDW 13.2 % (11.9-15.9)
[2016-10-04 00:06] LABS: INR 1.12 (0.82-1.09); PROTHROMBIN TIME (PATIENT) 12.3 SEC (9.98-11.88)
[2016-10-04 00:22] LABS: ALBUMIN 4.1 g/dl (3.4-5.0); ANION GAP 9 (8-16); BILIRUBIN,TOTAL 0.5 mg/dL (0.2-1.0); CALCIUM 8.8 mg/dL (8.5-10.1); CO2 29 mmol/L (21-32); CREATININE 0.7 mg/dL (0.7-1.3); GLUCOSE,RANDOM 100 mg/dL (74-106); SGOT/AST 40 U/L (15-37); SGPT/ALT 57 U/L (12-78); TOT PROT 8.1 g/dl (6.4-8.2)
[2016-10-04 00:24] LABS: ALK PHOS 115 U/L (45-117); TROPONIN I < 0.02 ng/ml (0.00-0.05)
[2016-10-04 00:59] VITALS: BP 150/94; PULSE 80; TEMP 98
--- NOTE | 2016-10-04 13:00 | EKG ---
Test Reason : Blood Pressure : / mmHG Vent. Rate : 064 BPM Atrial Rate : 064 BPM P-R Int : 180 ms QRS Dur : 090 ms QT Int : 382 ms P-R-T Axes : 011 044 011 degrees QTc Int : 394 ms NORMAL SINUS RHYTHM NORMAL ECG WHEN COMPARED WITH ECG OF 09-SEP-2016 15:02, NO SIGNIFICANT CHANGE WAS FOUND Confirmed by ALONDRA TILLEY MD ([id number]) on 10/04/2016 12:59:55 PM Referred By: Confirmed By:ALONDRA TILLEY MD
== END 2016-10-04 01:04 | disposition home or self-care (01) ==
LOC: JER 20:43
DX: R00.2 Palpitations (principal); E11.9 Type 2 diabetes mellitus without complications; Z79.84 Long term (current) use of oral hypoglycemic drugs
CPT/HCPCS: 36415; 71010-TC; 80053; 82550; 83735; 84484; 85025; 85610; 93005; 93010; 99283-25

== ENCOUNTER 2016-11-17 20:44 | Emergency (ER) | payer SELFPAY ==
[2016-11-17 20:51] VITALS: BP 164/94; PULSE 121; TEMP 98; BMI 36.3
[2016-11-17] MEDS ORDERED: SODIUM CHLORIDE 0.9% 500 ML INFUS.BAG IV ONE (21:22)
[2016-11-17 21:55] LABS: BASOPHIL 1.1 % (0-2.0); EOSINOPHIL 1.3 % (0-4.5); MCH 31.2 pg (25.7-33.7); MCHC 34.7 g/dl (32.0-35.9); MEAN CELL VOLUME 89.8 fl (80-96); MEAN PLT VOLUME 9.2 fl (7.5-11.1); NEUTROPHILS 71.6 % (42.8-82.8); PLATELET COUNT 114 K/MM3 (134-434); RDW 13.1 % (11.9-15.9); WHITE BLOOD COUNT 7.1 K/mm3 (4.0-10.0)
[2016-11-17 22:29] LABS: ALBUMIN 4.1 g/dl (3.4-5.0); ALK PHOS 116 U/L (45-117); ANION GAP 7 (8-16); BILIRUBIN,TOTAL 0.4 mg/dL (0.2-1.0); CALCIUM 8.9 mg/dL (8.5-10.1); CO2 27 mmol/L (21-32); CREATININE 0.8 mg/dL (0.7-1.3); GLUCOSE,RANDOM 117 mg/dL (74-106); SGPT/ALT 45 U/L (12-78); TOT PROT 8.1 g/dl (6.4-8.2)
[2016-11-17 22:31] LABS: SGOT/AST 37 U/L (15-37)
--- NOTE | 2016-11-17 22:46 | PDOC ---
History of Present Illness - General History Source: Patient Exam Limitations: No Limitations - History of Present Illness Initial Comments: 11/17/16 23:05 Patient is a 36 year old male with significant medical hx of NIDDM who is presenting to the ED with one day of palpitations. Patient reports that his symptoms began today today after while at work. He complains of feeling shaky and states that his heart is racing. Patient denies any chest pain, shortness of breath, abdominal pain, lightheadedness, syncope, visual changes, nausea, or vomiting. The patient has been here on 10/04 for a similar complaint. PCP: Maricruz Rivera MD <Hannah Morin - Last Filed: 11/17/16 23:05> <Radha Poe - Last Filed: 11/18/16 02:51> - General Chief Complaint: Chest Pain Stated Complaint: PALPITATIONS Time Seen by Provider: 11/17/16 21:14 Past History <Hannah Morin - Last Filed: 11/17/16 23:05> - Past Medical History Diabetes: Yes - Psycho/Social/Smoking Cessation Hx Anxiety: No Suicidal Ideation: No Smoking History: Former smoker Have you smoked in the past 12 months: No Number of Cigarettes Smoked Daily: 6 If you are a former smoker, when did you quit?: 05/2015 Information on smoking cessation initiated: No 'Breaking Loose' booklet given: 05/17/16 Hx Alcohol Use: No Drug/Substance Use Hx: No Substance Use Type: None <Radha Poe - Last Filed: 11/18/16 02:51> - Past Medical History Allergies/Adverse Reactions: Allergies Allergy/AdvReac Type Severity Reaction Status Date / Time No Known Allergies Allergy Verified 11/17/16 20:51 Home Medications: Ambulatory Orders Folic Acid 1 mg PO DAILY 07/30/16 Metformin HCl 500 mg PO DAILY 07/30/16 Thiamine HCl [Vitamin B1] 100 mg PO DAILY 07/30/16 Review of Systems - Review of Systems Able to Perform ROS?: Yes Comments:: 11/17/16 23:05 CONSTITUTIONAL: Absent: fever, chills, diaphoresis, generalized weakness, malaise, loss of appetite HEENT: Absent: rhinorrhea, nasal congestion, throat pain, throat swelling, difficulty swallowing, mouth swelling, ear pain, eye pain, visual Changes CARDIOVASCULAR: Present: chest pain, palpitations. Absent: syncope, irregular heart rate, lightheadedness, peripheral edema RESPIRATORY: Absent: cough, shortness of breath, dyspnea with exertion, orthopnea, wheezing, stridor, hemoptysis GASTROINTESTINAL: Absent: abdominal pain, abdominal distension, nausea, vomiting, diarrhea, constipation, melena, hematochezia GENITOURINARY: Absent: dysuria, frequency, urgency, hesitancy, hematuria, flank pain, genital pain MUSCULOSKELETAL: Absent: myalgia, arthralgia, joint swelling SKIN: Present: fungal infection to the back of head. Absent: pallor HEMATOLOGIC/IMMUNOLOGIC: Absent: easy bleeding, easy bruising, lymphadenopathy, frequent infections ENDOCRINE: Absent: unexplained weight gain, unexplained weight loss, heat intolerance, cold intolerance NEUROLOGIC: Absent: headache, focal weakness or paresthesias, dizziness, unsteady gait, seizure, mental status changes, bladder or bowel incontinence PSYCHIATRIC: Absent: anxiety, depression, suicidal or homicidal ideation, hallucinations. <Hannah Morin - Last Filed: 11/17/16 23:05> *Physical Exam - Vital Signs Last Vital Signs Temp Pulse Resp BP Pulse Ox 98.0 F 121 H 21 164/94 100 11/17/16 20:49 11/17/16 20:49 11/17/16 20:49 11/17/16 20:49 11/17/16 20:49 - Physical Exam Comments: 11/17/16 23:07 GENERAL: Well developed, well nourished. Awake and alert. No acute distress. HEENT: (+)Pterygium: Right eye - medial/lateral; Left eye - medial. Normocephalic, atraumatic. PERRLA, EOMI. No conjunctival pallor. Sclera are non-icteric. Moist mucous membranes. Oropharynx is clear. NECK: Supple. Full ROM. No JVD. Carotid pulses 2+ and symmetric, without bruits. No thyromegaly. No lymphadenopathy. CARDIOVASCULAR: Regular rate and rhythm. No murmurs, rubs, or gallops. Distal pulses are 2+ and symmetric. PULMONARY: No evidence of respiratory distress. Lungs clear to auscultation bilaterally. No wheezing, rales or rhonchi. ABDOMINAL: Soft. Non-tender. Non-distended. No rebound or guarding. No organomegaly. Normoactive bowel sounds. MUSCULOSKELETAL Normal range of motion at all joints. No bony deformities or tenderness. No CVA tenderness. EXTREMITIES: No cyanosis. No clubbing. No edema. No calf tenderness. SKIN: Warm and dry. Normal capillary refill. No rashes. No jaundice. NEUROLOGICAL: Alert, awake, appropriate.. PSYCHIATRIC: Cooperative. Good eye contact. Appropriate mood and affect. <Hannah Morin - Last Filed: 11/17/16 23:05> - Vital Signs Last Vital Signs Temp Pulse Resp BP Pulse Ox 98.0 F 121 H 21 164/94 100 11/17/16 20:49 11/17/16 20:49 11/17/16 20:49 11/17/16 20:49 11/17/16 20:49 <Radha Poe - Last Filed: 11/18/16 02:51> ED Treatment Course - LABORATORY CBC & Chemistry Diagram: 11/17/16 21:46 11/17/16 21:46 - ADDITIONAL ORDERS Additional order review: Laboratory Results 11/17/16 11/17/16 21:46 21:46 Sodium 140 Potassium 4.2 Chloride 106 Carbon Dioxide 27 Anion Gap 7 L BUN 16 D Creatinine 0.8 Creat Clearance w eGFR > 60 Random Glucose 117 H Calcium 8.9 Total Bilirubin 0.4 AST 37 ALT 45 D Alkaline Phosphatase 116 Total Protein 8.1 Albumin 4.1 TSH 0.40 D 11/17/16 21:46 RBC 4.80 MCV 89.8 MCHC 34.7 RDW 13.1 MPV 9.2 Neutrophils % 71.6 Lymphocytes % 19.8 D Monocytes % 6.2 Eosinophils % 1.3 D Basophils % 1.1 - Medications Given in the ED: ED Medications Discontinued Medications Generic Name Dose Route Start Last Admin Trade Name Freq PRN Reason Stop Dose Admin Sodium Chloride 1,000 ml 11/17/16 21:22 11/17/16 22:02 Normal Saline - IV 11/17/16 21:23 1,000 ml ONCE ONE Administration <Hannah Morin - Last Filed: 11/17/16 23:05> - LABORATORY CBC & Chemistry Diagram: 11/17/16 21:46 11/17/16 21:46 - ADDITIONAL ORDERS Additional order review: Laboratory Results 11/17/16 11/17/16 21:46 21:46 Sodium 140 Potassium 4.2 Chloride 106 Carbon Dioxide 27 Anion Gap 7 L BUN 16 D Creatinine 0.8 Creat Clearance w eGFR > 60 Random Glucose 117 H Calcium 8.9 Total Bilirubin 0.4 AST 37 ALT 45 D Alkaline Phosphatase 116 Total Protein 8.1 Albumin 4.1 TSH 0.40 D 11/17/16 21:46 RBC 4.80 MCV 89.8 MCHC 34.7 RDW 13.1 MPV 9.2 Neutrophils % 71.6 Lymphocytes % 19.8 D Monocytes % 6.2 Eosinophils % 1.3 D Basophils % 1.1 - Medications Given in the ED: ED Medications Discontinued Medications Generic Name Dose Route Start Last Admin Trade Name [place] PRN Reason Stop Dose Admin Sodium Chloride 1,000 ml 11/17/16 21:22 11/17/16 22:02 Normal Saline - IV 11/17/16 21:23 1,000 ml ONCE ONE Administration <Radha Poe - Last Filed: 11/18/16 02:51> Medical Decision Making - Medical Decision Making 11/17/16 22:58 Pt comes with tachycardia and palpitations that began suddenly at work. He appears anxious. 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 On exam, his HR came down to 104 with no treatment. He states that he feels better. Pt states that 6 months ago he was diagnosed with diabetes. He is compliant with his glucophage. He states that his PMD wanted to check him for thyroild disease as he has had tachycardia in the past.. EKG today is Sinus tachy; TSH is normal All labs normal No electrolyte imbalances. Pt has no fever and no chills. He has a large kerion on his acciput to the name of his neck. It has been ongoing for a year and he never sought treatment. <Radha Poe - Last Filed: 11/18/16 02:51> *DC/Admit/Observation/Transfer - Attestations Scribe Attestion: 11/17/16 23:12 Documentation prepared by Hannah Morin, acting as anesthesiology medical doctor for Radha Poe MD. <Hannah Morin - Last Filed: 11/17/16 23:05> - Discharge Dispostion Admit: No <Radha Poe - Last Filed: 11/18/16 02:51> Diagnosis at time of Disposition: Dehydration, Tachycardia, paroxysmal, Tinea kerion - Discharge Dispostion Disposition: HOME Condition at time of disposition: Stable - Referrals Referrals: Maricruz Rodriges MD [Primary Care Provider] - Robert Duvall MD [Staff Physician] - - Patient Instructions Printed Discharge Instructions: DI for Ambulatory Cardiac Monitoring, Tinea Capitis
[2016-11-18 00:21] LABS: ACETONE SERUM NEGATIVE (NEGATIVE)
--- NOTE | 2016-11-20 23:16 | EKG ---
Test Reason : Blood Pressure : / mmHG Vent. Rate : 101 BPM Atrial Rate : 101 BPM P-R Int : 172 ms QRS Dur : 088 ms QT Int : 348 ms P-R-T Axes : 045 064 028 degrees QTc Int : 451 ms SINUS TACHYCARDIA OTHERWISE NORMAL ECG WHEN COMPARED WITH ECG OF 03-OCT-2016 23:22, VENT. RATE HAS INCREASED BY 37 BPM Confirmed by LISBET GARCIA MD ([id number]) on 11/20/2016 11:15:54 PM Referred By: Confirmed By:LISBET GARCIA MD
== END 2016-11-18 00:20 | disposition home or self-care (01) ==
LOC: JER 20:44
DX: I47.9 Paroxysmal tachycardia, unspecified (principal); E86.0 Dehydration; B35.0 Tinea barbae and tinea capitis
CPT/HCPCS: 36415; 80053; 82009; 84443; 85025; 93005; 93010; 99283-25

== ENCOUNTER 2017-01-26 19:04 | Emergency (ER) | payer OTHER ==
[2017-01-26 19:15] VITALS: TEMP 98; BMI 38.0
--- NOTE | 2017-01-26 20:15 | PDOC ---
Attending Attestation - Resident Resident Name: Joe Sosa - HPI HPI: 01/26/17 22:06 Pt comes with palpitation and the same presentation he had when I saw him 2 months ago. Pt never followed with dermatology for his kerion and he never followed with cardiology for holter monitoring. - Physicial Exam PE: 01/28/17 00:04 Agree with resident exam - Medical Decision Making 01/28/17 00:04 He will be asked to follow with cards and dermatology.
--- NOTE | 2017-01-26 20:43 | PDOC ---
History of Present Illness - General Chief Complaint: Palpitations Stated Complaint: PALPITATIONS Time Seen by Provider: 01/26/17 20:08 History Source: Patient - History of Present Illness Initial Comments: 01/26/17 20:45 Patient is a 36 year old male with significant medical hx of NIDDM who is presenting to the ED with one day of palpitations. Patient reports that his symptoms began today today after while at work. He complains of feeling shaky and states that his heart is racing. Patient denies any chest pain, shortness of breath, abdominal pain, lightheadedness, syncope, visual changes, nausea, or vomiting. The patient has been here on 11/17/16 and 10/04 for a similar complaint. Patient states that he was recently told by his doctor to take his metformin every other day due to occasional low blood sugar. 01/26/17 21:01 Past History - Past Medical History Allergies/Adverse Reactions: Allergies Allergy/AdvReac Type Severity Reaction Status Date / Time No Known Allergies Allergy Verified 01/26/17 19:11 Home Medications: Ambulatory Orders Folic Acid 1 mg PO DAILY 07/30/16 Metformin HCl 500 mg PO DAILY 07/30/16 Thiamine HCl [Vitamin B1] 100 mg PO DAILY 07/30/16 Melatonin 5 mg PO HS 01/26/17 COPD: No Diabetes: Yes - Suicide/Smoking/Psychosocial Hx Smoking History: Former smoker Have you smoked in the past 12 months: Yes Number of Cigarettes Smoked Daily: 6 If you are a former smoker, when did you quit?: 05/2015 Information on smoking cessation initiated: No 'Breaking Loose' booklet given: 05/17/16 Hx Alcohol Use: No Drug/Substance Use Hx: No Substance Use Type: None Review of Systems - Review of Systems Able to Perform ROS?: Yes Constitutional: Yes: Diaphoresis HEENTM: No: Symptoms Reported Respiratory: No: Symptoms reported Cardiac (ROS): No: Symptoms Reported ABD/GI: No: Symptoms Reported, Constipated, Difficulty Swallowing, Nausea : No: Symptoms Reported Musculoskeletal: No: Symptoms Reported Integumentary: No: Symptoms Reported All Other Systems: Reviewed and Negative *Physical Exam - Vital Signs Last Vital Signs Temp Pulse Resp BP Pulse Ox 98 F 92 H 18 138/93 98 01/26/17 19:11 01/26/17 19:11 01/26/17 19:11 01/26/17 19:11 01/26/17 19:11 - Physical Exam General Appearance: Yes: Nourished, Appropriately Dressed. 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 negative: Chest Tender Cardiovascular: positive: Regular Rhythm, Regular Rate, S1, S2 ED Treatment Course - LABORATORY CBC & Chemistry Diagram: 01/26/17 20:20 01/26/17 20:20 - ADDITIONAL ORDERS Additional order review: Laboratory Results 01/26/17 01/26/17 20:20 20:20 Sodium 141 Potassium 4.2 Chloride 105 Carbon Dioxide 28 Anion Gap 8 BUN 10 D Creatinine 0.7 Creat Clearance w eGFR > 60 Random Glucose 105 Calcium 8.6 Total Bilirubin 0.7 D AST 72 H D ALT 77 D Alkaline Phosphatase 138 H Creatine Kinase 152 Troponin I < 0.02 Total Protein 8.0 Albumin 4.0 Urine Color Ltyellow Urine Appearance Clear Urine pH 6.0 Ur Specific [place] 1.011 Urine Protein Negative Urine Glucose (UA) Negative Urine Ketones Negative Urine Blood Negative Urine Nitrite Negative Urine Bilirubin Negative Urine Urobilinogen Negative 01/26/17 20:20 RBC 4.97 MCV 90.1 MCHC 33.9 RDW 14.0 MPV 9.5 Neutrophils % 66.5 Lymphocytes % 22.0 Monocytes % 8.1 Eosinophils % 2.4 D Basophils % 1.0 Medical Decision Making - Medical Decision Making 01/26/17 21:02 Patient is a 36 year old male with significant medical hx of NIDDM who is presenting to the ED with one day of palpitations.. EKG: Normal sinus rhythm 01/26/17 22:03 All labs within normal limits. Sugar controlled. Follow up with clinical office technician for Holster monitor placement to investigate random palpitations. *DC/Admit/Observation/Transfer Diagnosis at time of Disposition: Palpitation - Discharge Dispostion Disposition: HOME Admit: No - Referrals Referrals: Maricruz Rodriges MD [Primary Care Provider] - Robert Duvall MD [Staff Physician] - - Patient Instructions Printed Discharge Instructions: DI for Palpitations Additional Instructions: Follow up with your PCP tomorrow. Follow up tomorrow and make an appointment with Dr. Duvall for Holster monitor placement. Come back to the Er for any new, worsening or concerning symptom especially concerning chest pain, sweating, chills, dizziness and shortness of breath. - Post Discharge Activity
[2017-01-26 20:48] LABS: URINE APPEARANCE CLEAR; URINE BILIRUBIN NEGATIVE (NEGATIVE); URINE BLOOD NEGATIVE (NEGATIVE); URINE COLOR LTYELLOW; URINE GLUCOSE (UA) NEGATIVE (NEGATIVE); URINE KETONE NEGATIVE (NEGATIVE); URINE NITRITE NEGATIVE (NEGATIVE); URINE PROTEIN NEGATIVE (NEGATIVE); URINE UROBILINOGEN NEGATIVE mg/dL (0.2-1.0)
[2017-01-26 20:58] LABS: EOSINOPHIL 2.4 % (0-4.5); MCH 30.6 pg (25.7-33.7); MCHC 33.9 g/dl (32.0-35.9); MEAN CELL VOLUME 90.1 fl (80-96); MEAN PLT VOLUME 9.5 fl (7.5-11.1); NEUTROPHILS 66.5 % (42.8-82.8); PLATELET COUNT 115 K/MM3 (134-434); WHITE BLOOD COUNT 6.5 K/mm3 (4.0-10.0)
[2017-01-26 21:10] LABS: ANION GAP 8 (8-16); CALCIUM 8.6 mg/dL (8.5-10.1); CO2 28 mmol/L (21-32); GLUCOSE,RANDOM 105 mg/dL (74-106)
[2017-01-26 21:15] LABS: ALK PHOS 138 U/L (45-117); BILIRUBIN,TOTAL 0.7 mg/dL (0.2-1.0); CPK 152 IU/L (39-308); CREATININE 0.7 mg/dL (0.7-1.3); SGOT/AST 72 U/L (15-37); SGPT/ALT 77 U/L (12-78); TROPONIN I < 0.02 ng/ml (0.00-0.05)
[2017-01-26 22:23] VITALS: BP 148/90; PULSE 75
[2017-01-27 16:22] LABS: URINE LEUK ESTERASE Negative (NEGATIVE)
--- NOTE | 2017-01-29 11:39 | EKG ---
Test Reason : Blood Pressure : / mmHG Vent. Rate : 076 BPM Atrial Rate : 076 BPM P-R Int : 178 ms QRS Dur : 092 ms QT Int : 368 ms P-R-T Axes : 036 047 011 degrees QTc Int : 414 ms NORMAL SINUS RHYTHM NORMAL ECG WHEN COMPARED WITH ECG OF 26-JAN-2017 19:16, NO SIGNIFICANT CHANGE WAS FOUND Confirmed by ALONDRA TILLEY MD ([id number]) on 01/29/2017 11:38:46 AM Referred By: Confirmed By:ALONDRA TILLEY MD
--- NOTE | 2017-01-31 12:14 | EKG ---
Test Reason : Blood Pressure : / mmHG Vent. Rate : 087 BPM Atrial Rate : 087 BPM P-R Int : 174 ms QRS Dur : 088 ms QT Int : 354 ms P-R-T Axes : 035 054 016 degrees QTc Int : 425 ms NORMAL SINUS RHYTHM NORMAL ECG WHEN COMPARED WITH ECG OF 17-NOV-2016 20:55, NO SIGNIFICANT CHANGE WAS FOUND Confirmed by ALONDRA TILLEY MD ([id number]) on 01/31/2017 12:14:18 PM Referred By: Confirmed By:ALONDRA TILLEY MD
== END 2017-01-26 22:24 | disposition home or self-care (01) ==
LOC: JER 19:04
DX: R00.2 Palpitations (principal); E11.9 Type 2 diabetes mellitus without complications; Z79.84 Long term (current) use of oral hypoglycemic drugs
CPT/HCPCS: 36415; 80053; 81003; 82550; 82553; 84484; 85025; 93005; 93010; 99282-25

== ENCOUNTER 2017-03-18 23:03 | Emergency (ER) | payer OTHER ==
[2017-03-18 23:11] VITALS: BP 153/104; PULSE 92; TEMP 99.5; BMI 37.5
[2017-03-18] MEDS ORDERED: SODIUM CHLORIDE 0.9% 1000 ML INFUS.BAG IV ONE (23:40)
--- NOTE | 2017-03-18 23:52 | PDOC ---
History of Present Illness - General Chief Complaint: Chest Pain Stated Complaint: PALPITATIONS Time Seen by Provider: 03/18/17 23:19 History Source: Patient Exam Limitations: No Limitations - History of Present Illness Initial Comments: 03/19/17 00:07 The patient is a 36M with a PMH of DM who presents to the ED with complaints of palpitations and CP. The patient states that around 1930 he had an episode of lightheadedness and diaphoresis and then palpitations. He checked his BGL and it was 58. He drank some coca-cola and then felt better but he describes a continuing pressure-like feeling in his L anterior lower chest near his heart. The pressure is always there, does not change with breathing, and nothing makes it better/worse. He denies any CP, SOB, current palpitations, fever, chills, nausea, vomiting, diarrhea, constipation. Past History - Past Medical History Allergies/Adverse Reactions: Allergies Allergy/AdvReac Type Severity Reaction Status Date / Time No Known Allergies Allergy Verified 03/18/17 23:11 Home Medications: Ambulatory Orders Folic Acid 1 mg PO DAILY 07/30/16 Metformin HCl 500 mg PO DAILY 07/30/16 Thiamine HCl [Vitamin B1] 100 mg PO DAILY 07/30/16 COPD: No Diabetes: Yes - Suicide/Smoking/Psychosocial Hx Smoking History: Former smoker Have you smoked in the past 12 months: No Number of Cigarettes Smoked Daily: 6 If you are a former smoker, when did you quit?: 05/2015 Information on smoking cessation initiated: No 'Breaking Loose' booklet given: 05/17/16 Hx Alcohol Use: No Drug/Substance Use Hx: No Substance Use Type: None Review of Systems - Review of Systems Able to Perform ROS?: Yes Comments:: 03/19/17 00:16 GENERAL/CONSTITUTIONAL: No fever or chills. No weakness. HEAD, EYES, EARS, NOSE AND THROAT: No change in vision. No ear pain or discharge. No sore throat. GASTROINTESTINAL: No nausea, vomiting, diarrhea, constipation, or abdominal pain. GENITOURINARY: No dysuria, frequency, hematuria, or change in urination. CARDIOVASCULAR: Positive for localized chest pressure. No chest pain, palpitations, or lightheadedness. RESPIRATORY: No cough, wheezing, shortness of breath, or hemoptysis. MUSCULOSKELETAL: No joint or muscle swelling or pain. No neck or back pain. SKIN: No rash or lesions. NEUROLOGIC: No headache, numbness, tingling, weakness, loss of consciousness, or change in strength/sensation. ENDOCRINE: No increased thirst. No abnormal weight change. HEMATOLOGIC/LYMPHATIC: No anemia, easy bleeding, or history of blood clots. ALLERGIC/IMMUNOLOGIC: No hives or skin allergy. Is the patient limited [place] proficient: No *Physical Exam - Vital Signs Last Vital Signs Temp Pulse Resp BP Pulse Ox 99.5 F 92 H 18 153/104 99 03/18/17 23:05 03/18/17 23:05 03/18/17 23:05 03/18/17 23:05 03/18/17 23:05 - Physical Exam Comments: 03/19/17 00:19 GENERAL: Well developed, well nourished. Awake and alert. No acute distress. HEENT: Normocephalic, atraumatic. Hearing grossly normal. Moist mucous membranes. PERRLA, EOMI. R conjunctival injection. NECK: Supple. Full ROM. No JVD. CARDIOVASCULAR: Regular rate and rhythm. No murmurs, rubs, or gallops. PULMONARY: No evidence of respiratory distress. Lungs clear to auscultation bilaterally. No wheezing, rales or rhonchi. ABDOMINAL: Soft. Non-tender. Non-distended. No rebound or guarding. GENITOURINARY: No CVA tenderness bilaterally. MUSCULOSKELETAL: Normal range of motion at all joints. No bony deformities or tenderness. EXTREMITIES: No cyanosis. No clubbing. No edema. No calf tenderness. SKIN: Warm and dry. Normal capillary refill. No rashes. No jaundice. NEUROLOGICAL: Alert, awake, appropriate. Cranial nerves 2-12 intact. Normal speech. Gait is normal without ataxia. PSYCHIATRIC: Cooperative. Good eye contact. Appropriate mood and affect. Heart Score/ECG Review #1 ECG reviewed & interpreted by me at: 12:22 General ECG Interpretation: Sinus Rhythm, Normal Rate, Normal Intervals, No acute ischemic changes Compared to previous ECG there are: Previous ECG unavail 03/19/17 00:22 NSR Rate 85 QRS 88 QTc 414 ED Treatment Course - LABORATORY CBC & Chemistry Diagram: 03/18/17 23:53 03/18/17 23:53 - RADIOLOGY Radiology Studies Ordered: Category Date Time Status CHEST PA & LAT [RAD] Stat Radiology 03/18/17 23:40 Ordered Medical Decision Making - Medical Decision Making 03/19/17 00:22 The patient is a 36M with a PMH of DM who presents to the ED with complaints of palpitations with continuous localized L anterior lower chest pressure. EKG is normal. Sending cardiac enzymes and basic labs. Pending labs. 03/19/17 01:58 Labs WNL. Pt informed and ready to be d/c. *DC/Admit/Observation/Transfer Diagnosis at time of Disposition: Chest pain Qualifiers: Chest pain type: unspecified Qualified Code(s): R07.9 - Chest pain, unspecified - Discharge Dispostion Disposition: HOME Condition at time of disposition: Stable Admit: No - Referrals Referrals: Maricruz Rodriges MD [Primary Care Provider] - - Patient Instructions Printed Discharge Instructions: DI for Atypical Chest Pain, DI for Chest Pain Additional Instructions: Please return to the ER if symptoms persist, worsen, or new symptoms arise. Please follow up with your primary care physician in 2-3 days. Please return to the ER if you have any signs or symptoms of chest pain, shortness of breath, uncontrollable fever, chills, nausea, vomiting, numbness, tingling, or weakness in any part of your body, changes in vision, or slurred speech. Por favor regrese a la malena de emergencias si los sntomas persisten, empeoran o surgen nuevos sntomas. Por favor, yana un seguimiento con mays mdico de atencin primaria en 2-3 mullen. Por favor regrese a la malena de emergencia si tiene signos o sntomas de dolor en el pecho, dificultad para respirar, fiebre incontrolable, escalofros, n useas, vmitos, entumecimiento, hormigueo o debilidad en cualquier parte de mays cuerpo, cambios en la visin o dificultad para hablar. - Post Discharge Activity
[2017-03-18 23:58] LABS: BASO % 0.7 % (0-2.0); EOS % 1.4 % (0-4.5); HEMATOCRIT 43.1 % (35.4-49); HEMOGLOBIN 14.6 GM/dL (11.7-16.9); LYMPH % 24.4 % (8-40); MCH 30.4 pg (25.7-33.7); MCHC 33.8 g/dl (32.0-35.9); MEAN PLT VOLUME 9.3 fl (7.5-11.1); NEUT % 66.5 % (42.8-82.8); PLATELET COUNT 106 K/MM3 (134-434); RBC 4.79 M/mm3 (4.00-5.60); RDW 13.6 % (11.9-15.9); WHITE BLOOD COUNT 6.1 K/mm3 (4.0-10.0)
[2017-03-19 00:32] LABS: ALBUMIN 3.9 g/dl (3.4-5.0); ANION GAP 7 (8-16); BLOOD UREA NITROGEN 9 mg/dL (7-18); CALCIUM 8.9 mg/dL (8.5-10.1); CHLORIDE 101 mmol/L (98-107); CO2 30 mmol/L (21-32); CREATININE 0.8 mg/dL (0.7-1.3); GLUCOSE,RANDOM 164 mg/dL (74-106); POTASSIUM 3.8 mmol/L (3.5-5.1); SGOT/AST 37 U/L (15-37); SGPT/ALT 49 U/L (12-78); SODIUM 138 mmol/L (136-145)
[2017-03-19 00:35] LABS: ALK PHOS 148 U/L (45-117); BILIRUBIN,TOTAL 0.4 mg/dL (0.2-1.0); TOT PROT 7.7 g/dl (6.4-8.2)
--- NOTE | 2017-03-19 00:47 | PDOC ---
Attending Attestation - Resident Resident Name: De Springer - ED Attending Attestation I have performed the following: I have examined & evaluated the patient, The case was reviewed & discussed with the resident, I agree w/resident's findings & plan - HPI HPI: 03/19/17 00:41 Pt comes with low blood sugar. His PMD diagnosed him with DM and he has been taking glucophage 500 QD, every other day. But he has been severely cutting back calories. He has a blood sugar of 58. - Physicial Exam PE: 03/19/17 00:44 Agree with resident exam. Pt has tinea barbae at the back of his head. I have seen him in the ER in the past and recommended that he follow with dermatology for it. We try not to start patient's on griseofulvin in the ER, as it is hepatotoxic. Pt will follow with derm. He tells me that he has an appointment. - Medical Decision Making 03/19/17 00:45 Home with PMD follow up. Pt needs to eat 1800 calories daily. At present pt is not getting enough calories. Today he ate goat, lettuce, avocado and a tiny amount of pasta. Then he drank soda to bring up his sugar.
--- NOTE | 2017-03-19 12:22 | EKG ---
Test Reason : Blood Pressure : / mmHG Vent. Rate : 085 BPM Atrial Rate : 085 BPM P-R Int : 182 ms QRS Dur : 088 ms QT Int : 348 ms P-R-T Axes : 030 057 019 degrees QTc Int : 414 ms NORMAL SINUS RHYTHM POSSIBLE LEFT ATRIAL ENLARGEMENT BORDERLINE ECG WHEN COMPARED WITH ECG OF 26-JAN-2017 20:34, NO SIGNIFICANT CHANGE WAS FOUND Confirmed by LISBET GARCIA MD ([id number]) on 03/19/2017 12:22:12 PM Referred By: Confirmed By:LISBET GARCIA MD
== END 2017-03-19 03:50 | disposition home or self-care (01) ==
LOC: JER 23:03
DX: R07.89 Other chest pain (principal); E11.9 Type 2 diabetes mellitus without complications; Z79.84 Long term (current) use of oral hypoglycemic drugs
CPT/HCPCS: 36415; 80053; 82550; 82553; 83036; 84484; 85025; 93005; 93010; 99282-25

== ENCOUNTER 2018-10-21 15:31 | Inpatient (IN) | payer OTHER ==
[2018-10-21] MEDS ORDERED: ASPIRIN 81 MG CHEWABLE TABLETS PO ONE (15:46)
--- NOTE | 2018-10-21 15:46 | PDOC ---
Rapid Medical Evaluation Time Seen by Provider: 10/21/18 15:44 Medical Evaluation: Allergies Allergy/AdvReac Type Severity Reaction Status Date / Time No Known Allergies Allergy Verified 03/18/17 23:11 10/21/18 15:45 HPI: C/O Chest pressure x1 d, Hx of DM PE: No gross deficits ORDES: Cardiac work up Discharge Disposition - Diagnosis Chest pain - Referrals - Patient Instructions - Post Discharge Activity
[2018-10-21 15:49] VITALS: BMI 38.0
[2018-10-21] MEDS ORDERED: ASPIRIN 81 MG CHEWABLE TABLETS ONE (18:01)
[2018-10-21 18:02] LABS: BASO % 0.7 % (0-2.0); EOS % 1.2 % (0-4.5); HEMATOCRIT 43.9 % (35.4-49); HEMOGLOBIN 15.1 GM/dL (11.7-16.9); LYMPH % 12.4 % (8-40); MCH 32.4 pg (25.7-33.7); MCHC 34.5 g/dl (32.0-35.9); MEAN PLT VOLUME 8.7 fl (7.5-11.1); MONO % 4.3 % (3.8-10.2); NEUT % 81.4 % (42.8-82.8); PLATELET COUNT 172 K/MM3 (134-434); RBC 4.67 M/mm3 (4.00-5.60); RDW 13.5 % (11.9-15.9)
--- NOTE | 2018-10-21 18:19 | PDOC ---
History of Present Illness - General Chief Complaint: Chest Pain Stated Complaint: HYPERTENSION Time Seen by Provider: 10/21/18 15:44 History Source: Patient Exam Limitations: No Limitations - History of Present Illness Initial Comments: Pt is a 38 yo M, with PMH of NIDDM and HTN, who is presenting with L-sided chest pressure from 12-2 pm today. Pt states the discomfort was constant and started while he was lying in bed. Pt denies radiation, diaphoresis, or SOB associated. Pt did have nausea and 3 episodes of vomiting. Pt states the pain and vomiting resolved on its own. Pt took his glucose at home which was 120. Pt states he has had this before, which is usually associated with lower blood sugar. Pt denies any recent fevers/chills, headache, vision changes, syncope, palpitations, SOB, abdominal pain, urinary symptoms, diarrhea/constipation, or leg swelling. Allergies: NKDA PCP: Rekha No purchasing intern or stress test done in the past. Social: Pt denies any cigarette, alcohol, or drug use. Pt denies any recent travel or sick contacts. Surgical: no relevant history. Family: no relevant history. 10/21/18 19:20 10/21/18 19:46 Past History - Travel Traveled outside of the country in the last 30 days: No Close contact w/someone who was outside of country & ill: No - Past Medical History Allergies/Adverse Reactions: Allergies Allergy/AdvReac Type Severity Reaction Status Date / Time No Known Allergies Allergy Verified 03/18/17 23:11 Home Medications: Ambulatory Orders Folic Acid 1 mg PO DAILY 07/30/16 Thiamine HCl [Vitamin B1] 100 mg PO DAILY 07/30/16 metFORMIN HCL [Metformin HCl] 500 mg PO DAILY 07/30/16 COPD: No Diabetes: Yes - Immunization History Immunization Up to Date: Yes - Suicide/Smoking/Psychosocial Hx Smoking History: Current some day smoker Have you smoked in the past 12 months: No Number of Cigarettes Smoked Daily: 5 If you are a former smoker, when did you quit?: 05/2015 Information on smoking cessation initiated: Yes 'Breaking Loose' booklet given: 05/17/16 Hx Alcohol Use: No Drug/Substance Use Hx: No Substance Use Type: None Cardiac Specific PMH - Complaint Specific PMHX Abdominal Aortic Aneurysm: No Angina: No Cardiac Arrhythmia: No Cardiac Stent: No Myocardial Infarction: No Pacemaker: No Pulmonary Embolus: No Valvular Heart Disease: No Review of Systems - Review of Systems Able to Perform ROS?: Yes Is the patient limited Persian proficient: No Constitutional: Yes: Weight Stable. No: Chills, Diaphoresis, Fever, Loss of Appetite, Malaise, Weakness HEENTM: No: Blurred Vision, Double Vision, Nose Congestion, Throat Pain, Throat Swelling, Difficulty Swallowing Respiratory: No: Cough, Orthopnea, Shortness of Breath Cardiac (ROS): Yes: Chest Pain. No: Edema, Irregular Heart Rate, Lightheadedness, Palpitations, Syncope, Chest Tightness ABD/GI: Yes: Nausea, Vomiting. No: Constipated, Diarrhea, Poor Appetite, Poor Fluid Intake, Abdominal cramping : No: Burning, Dysuria, Frequency, Pain, Urgency Musculoskeletal: No: Back Pain, Joint Pain, Muscle Pain, Muscle Weakness Integumentary: No: Rash Neurological: No: Headache, Numbness, Paresthesia, Weakness, Unsteady Gait, Dizziness Psychiatric: No: Sleep Pattern Change, Change in Appetite Endocrine: No: Increased Urine, Change in Weight Hematologic/Lymphatic: No: Anemia, Blood Clots, Easy Bleeding, Easy Bruising All Other Systems: Reviewed and Negative *Physical Exam - Vital Signs Last Vital Signs Temp Pulse Resp BP Pulse Ox 98.2 F 113 H 20 138/91 96 10/21/18 15:44 10/21/18 15:44 10/21/18 15:44 10/21/18 15:44 10/21/18 15:44 - Physical Exam Comments: Vitals stable (not tachycardic on exam), pt afebrile. Pt in NAD, sitting comfortably and normal body habitus. Pt alert and oriented x3. metal melter generally intact, muscular strength and sensation intact. No midline spinal tenderness, step-offs, or crepitus. Head normocephalic, atraumatic. Eyes PERRLA, EOMI. B/l pterygium. Oropharynx without erythema or exudates, no LAD b/l. No nasal congestion, hearing intact. Clear heart sounds, S1/S2, no JVD, b/l pedal edema, or heart murmur. Clear lung sounds, no respiratory distress, wheezes, crackles, or accessory muscle use. No abdominal or CVA tenderness to palpation, no rebound, no guarding. Abdomen soft, non-distended, and with normoactive bowel sounds. Skin without jaundice or rash. 10/21/18 18:52 Heart Score/ECG Review - History History: Slightly suspicious - Electrocardiogram EKG: Normal - Age Age: </= 45 - Risk Factors Risk Factors Heart Score: Yes Hx Hypertension, Yes Hx Diabetes Based on the list above the patient has:: 1-2 risk factors - Troponin Troponin: </= normal limit - Score Heart Score - Total: 1 ED Treatment Course - LABORATORY CBC & Chemistry Diagram: 10/21/18 17:50 10/21/18 17:50 - ADDITIONAL ORDERS Additional order review: Laboratory Results 10/21/18 10/21/18 10/21/18 21:00 17:50 17:50 PT with INR 11.50 INR 0.97 Sodium Potassium Chloride Carbon Dioxide Anion Gap BUN Creatinine Est GFR (CKD-EPI)AfAm Est GFR (CKD-EPI)NonAf Random Glucose Calcium Magnesium 1.6 L Total Bilirubin AST ALT Alkaline Phosphatase Creatine Kinase Creatine Kinase Index CK-MB (CK-2) Troponin I < 0.02 Total Protein Albumin 10/21/18 17:50 PT with INR INR Sodium 137 Potassium 4.5 Chloride 104 Carbon Dioxide 22 Anion Gap 12 BUN 6.4 L Creatinine 0.8 Est GFR (CKD-EPI)AfAm 132.27 Est GFR (CKD-EPI)NonAf 114.12 Random Glucose 119 H Calcium 8.9 Magnesium Total Bilirubin 0.3 AST 34 ALT 54 Alkaline Phosphatase 120 H Creatine Kinase 277 Creatine Kinase Index 0.5 CK-MB (CK-2) 1.6 Troponin I < 0.02 Total Protein 7.9 Albumin 4.3 10/21/18 17:50 RBC 4.67 MCV 94.0 MCHC 34.5 RDW 13.5 MPV 8.7 Neutrophils % 81.4 D Lymphocytes % 12.4 D Monocytes % 4.3 Eosinophils % 1.2 Basophils % 0.7 - Medications Given in the ED: ED Medications Discontinued Medications Generic Name Dose Route Start Last Admin Trade Name Freq PRN Reason Stop Dose Admin Aspirin 162 mg 10/21/18 15:46 10/21/18 17:59 Asa - PO 10/21/18 15:47 162 mg ONCE ONE Administration Chlordiazepoxide HCl 25 mg 10/21/18 22:31 10/21/18 22:59 Librium - PO 10/21/18 22:32 Not Given ONCE ONE Chlordiazepoxide HCl 25 mg 10/21/18 22:34 10/21/18 22:35 Librium - PO 10/21/18 22:35 25 mg NOW ONE Administration Diazepam 10 mg 10/21/18 22:21 10/21/18 22:34 Valium - PO 10/21/18 22:22 Not Given ONCE ONE Folic Acid 1 mg/ Thiamine HCl 1,000 mls @ 125 mls/hr 10/21/18 22:12 10/21/18 22:34 100 mg/ Multivitamins/Minerals IVPB 10/22/18 06:11 Not Given 10 ml/ Sodium Chloride ONCE ONE Lorazepam 1 mg 10/21/18 22:11 10/21/18 22:34 Ativan Injection - IVPUSH 10/21/18 22:12 Not Given ONCE ONE Medical Decision Making - Medical Decision Making Pt was seen at bedside, also will be seen by attending Dr. Byrnes. Pt presenting with constant chest pressure x2 hours, consistent with prior episodes associated with low blood sugar. Pt states no active chest pain now, not tachycardic on my exam. Pt will be troponin x2, potential admission for observation if chest pain returns. Provided PO fluids for improvement of likely dehydration. Will continue to reassess pt and monitor for symptomatic improvement. ECG: Sinus tachycardia, intervals WNL. No TWIs or significant ST segment changes. No significant changes from prior ECG. 10/21/18 19:49 Troponin x2 negative. Pt now admits to frequent alcohol use, states he feels like he is withdrawing and sometimes gets "shaky". Pt admitted to hospitalist team for tele observation, will likely need echo. Pt states no active chest pain. Providing IVF and PO librium for withdrawal 10/21/18 23:04 *DC/Admit/Observation/Transfer Diagnosis at time of Disposition: Chest pain Qualifiers: Chest pain type: unspecified Qualified Code(s): R07.9 - Chest pain, unspecified Alcohol withdrawal Qualifiers: Complication of substance-induced condition: uncomplicated Qualified Code(s): F10.230 - Alcohol dependence with withdrawal, uncomplicated - Discharge Dispostion Condition at time of disposition: Stable Decision to Admit order: Yes - Referrals - Patient Instructions - Post Discharge Activity
[2018-10-21 18:28] LABS: INR 0.97 (0.83-1.09); PROTHROMBIN TIME (PATIENT) 11.5 SEC (9.7-13.0)
[2018-10-21 18:34] LABS: ALBUMIN 4.3 g/dl (3.4-5.0); ALK PHOS 120 U/L (45-117); ANION GAP 12 MMOL/L (8-16); BILIRUBIN,TOTAL 0.3 mg/dL (0.2-1); BLOOD UREA NITROGEN 6.4 mg/dL (7-18); CALCIUM 8.9 mg/dL (8.5-10.1); CHLORIDE 104 mmol/L (98-107); CO2 22 mmol/L (21-32); CREATININE 0.8 mg/dL (0.55-1.3); GLUCOSE,RANDOM 119 mg/dL (74-106); POTASSIUM 4.5 mmol/L (3.5-5.1); SGOT/AST 34 U/L (15-37); SGPT/ALT 54 U/L (13-61); SODIUM 137 mmol/L (136-145); TOT PROT 7.9 g/dl (6.4-8.2)
[2018-10-21] MEDS ORDERED: SODIUM CHLORIDE 1,000 ML IV STA (22:11)
[2018-10-21] MEDS ORDERED: FOLIC ACID INJECTION - 1 MG, THIAMINE HCL 100 MG, MULTIVIT INJECTION ADULT 10 ML in SOD... IVPB ONE (22:12)
--- NOTE | 2018-10-21 22:20 | PDOC ---
Documentation entered by Chava Munguia SCRIBE, acting as scribe for Radha Byrnes DO. Radha Byrnes DO: This documentation has been prepared by the mauricio, Chava Munguia SCRIBE, under my direction and personally reviewed by me in its entirety. I confirm that the documentation accurately reflects all work , treatment, procedures, and medical decision making performed by me. Attending Attestation - Resident Resident Name: Vivi Angelo - ED Attending Attestation I have performed the following: I have examined & evaluated the patient, The case was reviewed & discussed with the resident, I agree w/resident's findings & plan - HPI HPI: 10/21/18 20:23 Patient is a 38 year old male with a significant past medical history NIDDM and HTN who presents to the ED with chest pain beginning x8 hours ago. Patient reports that his pain lasted for x2 hours, that it was constant and began while he was at rest. At this time patient says that he no longer has the pain. Denies trauma, vomit and SOB. Allergies: NKA Social History: Drinks Alcohol Heavily x2 a week PCP: Dr. Montano - Physicial Exam PE: 10/21/18 20:27 GENERAL: +Alcohol Withdrawal. Awake, in no acute distress HEAD: No signs of trauma EYES: ENT:clear without exudates. Moist mucosa NECK: Normal ROM, LUNGS:. Normal work of breathing. HEART: +2/6 systolic murmur. ABDOMEN: Soft, nondistended CHEST WALL: BACK: No midline tenderness. EXTREMITIES:. No erythema, or tenderness NEUROLOGICAL: Alert, SKIN: Warm, Dry - Medical Decision Making 10/21/18 22:19 38-year-old male with intermittent chest pains since 3 PM now chest pain-free Patient now admits to heavy drinking on the weekends Exam revealed a systolic murmur In light of no information though patient is low risk based on heart score he will be held for observation
[2018-10-21] MEDS ORDERED: MAGNESIUM 4GM/H20 - 4 GM/100 ML IVPB IVPB ONE ×2 (22:21→23:15)
[2018-10-21] MEDS ORDERED: diazePAM 5 MG TABLET PO ONE (22:21)
[2018-10-21] MEDS ORDERED: chlordiazePOXIDE HCL 25 MG CAPSULE ONE (22:27)
[2018-10-21] MEDS ORDERED: THIAMINE HCL 200 MG/2 ML VIAL IVPB SCH (22:30)
[2018-10-21] MEDS ORDERED: LACTATED RINGERS SOLUTION 1,000 ML/1,000 ML INFUS.BAG IV SCH (22:30)
[2018-10-21] MEDS ORDERED: chlordiazePOXIDE HCL 25 MG CAPSULE PO ONE ×2 (22:31→22:34)
--- NOTE | 2018-10-21 22:34 | PN ---
Teaching Attending Note ATTENDING PHYSICIAN STATEMENT I saw and evaluated the patient. I reviewed the resident's note and discussed the case with the resident. I agree with the resident's findings and plan as documented. Seen and examined; please see resident note for further historical information. Briefly, this is a 38 y/o male presenting with chest pain and symptoms of EtOH WD; initial troponin negative with no EKG changes with pain similar to prior presentations; has been seen in ER for CP before and sent home. Denies selvin CP and states this is the typical pain he gets with the elevated BP. 130s here but with CIWA ~12 so giving 1x PO tx and no EtOH hepatitis so going to place on librium protocol. Does not want to go to rehab and states he can stop drinking on his own. He is on lisinopril 20mg PO QD and has been compliant with tx. Home Medications Medication Instructions Recorded Folic Acid 1 mg PO DAILY 07/30/16 Thiamine HCl [Vitamin B1] 100 mg PO DAILY 07/30/16 metFORMIN HCL [Metformin HCl] 500 mg PO DAILY 07/30/16 VS, labs, imaging reviewed NAD, AAO, resting in bed RRR s1/2 Lungs CTAB, w/ sym exp NT ND +BS CN2-12 wnl, no fnd Slightly anxious, average insight, normal affect EKG reviewed CXR reviewed Telemetry ordered Echo pending ASSESSMENT AND PLAN: Patient presents with atypical CP, EtOH WD, and hypomagnesemia. # Atypical CP Trend troponin, monitor telemetry. Consider non-cardiac causes; check echo as at risk for dilated CM. Some risk factors for CAD but is young, unknown lipid profile, etc. Consider CV consult in the AM for inpt vs. OP stress testing once full picture obtained to consider pretest probability # EtOH Abuse with current WD -Advised to stop drinking, monitor CMP -QD Thiamine, folate -CIWA protocol with librium; offer detox # Low Mg -2/2 EtOH; trend and gave 4g # Hx HTN -Continue Lisinopril 20mg PO QD; followup BMP. # Hx NIDDM -Hold MTF; monitor AC+HS and SSI if needed. Check A1c with risk stratification.
[2018-10-21] MEDS ORDERED: chlordiazePOXIDE HCL 10 MG CAPSULE PO PRN (23:34)
[2018-10-21] MEDS: chlordiazePOXIDE HCL 25 MG CAPSULE PO SCH ×2 (23:41→23:44)
--- NOTE | 2018-10-22 00:38 | HP ---
CHIEF COMPLAINT: Left-sided chest pain PCP: Dr. Da Silva HISTORY OF PRESENT ILLNESS: Patient is a 38 year old male with PMH of HTN, NIDDMT2 and chronic alcohol use who presents with left-sided chest pain x1 day. He describes the chest pain as a dull pressure sensation that is constant, non-radiating, non-exertional. He denies any associated diaphoresis, palpitations, or SOB. Pt also complains of nausea and nbnb vomiting x3. He drank ~18 beers and whiskey yesterday evening. He reports that he typically drinks this much 2-3 times a week. He denies any fevers, chills, abd pain, diarrhea, constipation, tremors, or hallucinations. Pt notes that he occasionally gets tremors s/p binge drinking but denies a history of any hallucinations, hospitalizations, or intubation. He has never been to rehab/detox. ER course was notable for: (1) Trop neg x2, EKG: sinus tachy, no ischemic changes (2) CIWA score: 4 (3) Given 162mg asa, librium 25mg, folate and thiamine, Mg Recent Travel: denies PAST MEDICAL HISTORY: HTN NIDDMT2 Alcohol abuse PAST SURGICAL HISTORY: Denies Social History: Smokin cigarettes per day Alcohol: 18 beers + whiskey 2-3 times per week Drugs: denies Family History: Father: DM Allergies No Known Allergies Allergy (Verified 03/18/17 23:11) HOME MEDICATIONS: Home Medications Medication Instructions Recorded Folic Acid 1 mg PO DAILY 07/30/16 Thiamine HCl [Vitamin B1] 100 mg PO DAILY 07/30/16 metFORMIN HCL [Metformin HCl] 500 mg PO DAILY 07/30/16 REVIEW OF SYSTEMS CONSTITUTIONAL: Absent: fever, chills, diaphoresis, generalized weakness, malaise, loss of appetite, weight change HEENT: Absent: rhinorrhea, nasal congestion, throat pain, throat swelling, difficulty swallowing, mouth swelling, ear pain, eye pain, visual changes CARDIOVASCULAR: chest pain Absent: syncope, palpitations, irregular heart rate, lightheadedness, peripheral edema RESPIRATORY: Absent: cough, shortness of breath, dyspnea with exertion, orthopnea, wheezing, stridor, hemoptysis GASTROINTESTINAL: nausea, vomiting Absent: abdominal pain, abdominal distension, diarrhea, constipation, melena, hematochezia GENITOURINARY: Absent: dysuria, frequency, urgency, hesitancy, hematuria, flank pain, genital pain MUSCULOSKELETAL: Absent: myalgia, arthralgia, joint swelling, back pain, neck pain SKIN: Absent: rash, itching, pallor HEMATOLOGIC/IMMUNOLOGIC: Absent: easy bleeding, easy bruising, lymphadenopathy, frequent infections ENDOCRINE: Absent: unexplained weight gain, unexplained weight loss, heat intolerance, cold intolerance NEUROLOGIC: Absent: headache, focal weakness or paresthesias, dizziness, unsteady gait, seizure, mental status changes, bladder or bowel incontinence PSYCHIATRIC: Absent: anxiety, depression, suicidal or homicidal ideation, hallucinations. PHYSICAL EXAMINATION Vital Signs - 24 hr 10/21/18 15:44 Temperature 98.2 F Pulse Rate 113 H Respiratory 20 Rate Blood Pressure 138/91 O2 Sat by Pulse 96 Oximetry (%) GENERAL: Awake, alert, and fully oriented, in no acute distress. HEAD: Normal with no signs of trauma. EYES: Pupils equal, round and reactive to light, extraocular movements intact, sclera anicteric, pterygium on eyes BL. No lid lag. EARS, NOSE, THROAT: Ears normal, nares patent, oropharynx clear without exudates. Moist mucous membranes. NECK: Normal range of motion, supple without lymphadenopathy, JVD, or masses. LUNGS: Breath sounds equal, clear to auscultation bilaterally. No wheezes, and no crackles. No accessory muscle use. HEART: Regular rate and rhythm, normal S1 and S2, 1/6 systolic murmur. ABDOMEN: Soft, nontender, not distended, normoactive bowel sounds, no guarding, no rebound, no masses. No hepatomegaly or splenomegaly. MUSCULOSKELETAL: Normal range of motion at all joints. No bony deformities or tenderness. No CVA tenderness. UPPER EXTREMITIES: 2+ pulses, warm, well-perfused. No cyanosis. No clubbing. No peripheral edema. LOWER EXTREMITIES: 2+ pulses, warm, well-perfused. No calf tenderness. No peripheral edema. NEUROLOGICAL: Cranial nerves II-XII intact. Normal speech. Normal gait. PSYCHIATRIC: Cooperative. Good eye contact. Appropriate mood and affect. SKIN: Warm, dry, normal turgor, normal capillary refill. Fairly large psoriatic lesions on LE. Laboratory Results - last 24 hr CBC, BMP 10/21/18 17:50 10/21/18 17:50 ASSESSMENT/PLAN: Patient is a 38 year old male with PMH of HTN, NIDDMT2 and chronic alcohol use who presents with left-sided chest pain x1 day, nausea, and vomiting s/p binge drinking. #Atypical chest pain R/o ACS EKG: sinus tachycardia, no ST elevations or T wave abnormalities Serial troponins negative x3 CXR: no acute pathology Echo 2017 unremarkable. F/u new echo in am F/u BNP for baseline Pain improved in ED s/p asa 162mg #Alcohol use Given 25mg librium, folic acid, thiamine, and Mg in ED Cont librium protocol prn Cont thiamine 200mg IV, folic acid 1mg IV Frequent CIWA checks and monitor for withdrawal symptoms F/u RUQ abd US #Hx of thrombocytopenia On past visits, pt has had low platelet count (82 in 2017) Pt currently dehydrated, which may falsely elevate count. Cont to monitor CBC F/u HIV, hepatitis panel, RUQ abd US #HTN Cont home meds: lisinopril 20mg daily #NIDDMT2 Pt on metformin 500mg BID at home Starting on SSI TIDAC during admission FSG monitoring TID #FEN LR @ 100ml/hr #DVT ppx SCDs #Dispo Monitor on tele Visit type - Emergency Visit Emergency Visit: Yes ED Registration Date: 10/21/18 Care time: The patient presented to the Emergency Department on the above date and was hospitalized for further evaluation of their emergent condition. - New Patient This patient is new to me today: Yes Date on this admission: 10/22/18 - Critical Care Critical Care patient: No ATTENDING PHYSICIAN STATEMENT I saw and evaluated the patient. I reviewed the resident's note and discussed the case with the resident. I agree with the resident's findings and plan as documented. SUBJECTIVE: OBJECTIVE: ASSESSMENT AND PLAN:
[2018-10-22 01:54] LABS: COCAINE, UR NEGATIVE ng/ml (CUTOFF=300); METHADONE, UR NEGATIVE ng/ml (CUTOFF=300); OPIATES, URI NEGATIVE ng/ml (CUTOFF=300); PHENCYCLIDINE,URINE NEGATIVE ng/ml (CUTOFF=25); URINE AMPHETAMINES NEGATIVE ng/ml (CUTOFF=500); URINE BARBITURATES NEGATIVE ng/ml (CUTOFF=200); URINE BENZODIAZEPINES NEGATIVE ng/ml (CUTOFF=200)
[2018-10-22] MEDS ORDERED: HEPARIN NA (PORCINE) 5,000 UNITS/ML 1ML VIAL SQ SCH (02:00)
[2018-10-22] MEDS ORDERED: chlordiazePOXIDE 5 MG CAPSULE PO SCH (05:00)
[2018-10-22] MEDS ORDERED: chlordiazePOXIDE 5 MG CAPSULE PO PRN (05:24)
[2018-10-22] MEDS ORDERED: chlordiazePOXIDE 5 MG CAPSULE ONE ×2 (05:25→08:23)
[2018-10-22] MEDS ORDERED: INSULIN SLIDING SCALE (NOVOLOG) 1 VIAL SQ SCH (07:00)
[2018-10-22] MEDS: INSULIN SLIDING SCALE (NOVOLOG) 1 VIAL SQ SCH ×2 (07:01→12:05)
[2018-10-22 07:09] LABS: BASO % 0.9 % (0-2.0); HEMATOCRIT 41.1 % (35.4-49); HEMOGLOBIN 14.3 GM/dL (11.7-16.9); LYMPH % 27.9 % (8-40); MCH 32.5 pg (25.7-33.7); MCHC 34.8 g/dl (32.0-35.9); MEAN CELL VOLUME 93.4 fl (80-96); MEAN PLT VOLUME 8.7 fl (7.5-11.1); MONO % 10.5 % (3.8-10.2); NEUT % 56.7 % (42.8-82.8); PLATELET COUNT 144 K/MM3 (134-434); RDW 13.1 % (11.9-15.9); WHITE BLOOD COUNT 5.8 K/mm3 (4.0-10.0)
[2018-10-22 07:39] LABS: ALBUMIN 3.8 g/dl (3.4-5.0); ALK PHOS 105 U/L (45-117); ANION GAP 7 MMOL/L (8-16); BILIRUBIN,TOTAL 0.7 mg/dL (0.2-1); BLOOD UREA NITROGEN 7.4 mg/dL (7-18); CALCIUM 8.9 mg/dL (8.5-10.1); CHLORIDE 104 mmol/L (98-107); CO2 28 mmol/L (21-32); CREATININE 0.8 mg/dL (0.55-1.3); GLUCOSE,RANDOM 100 mg/dL (74-106); N-TERMINAL BNP 20.4 pg/ml (5-125); POTASSIUM 3.7 mmol/L (3.5-5.1); SGOT/AST 27 U/L (15-37); SGPT/ALT 45 U/L (13-61); SODIUM 138 mmol/L (136-145); TOT PROT 7.4 g/dl (6.4-8.2)
[2018-10-22] MEDS ORDERED: PT OWN MED DRAWER 7, Y5N ONE (08:20)
--- NOTE | 2018-10-22 08:22 | PN ---
Teaching Attending Note Name of Resident: Lenin Rodriguez ATTENDING PHYSICIAN STATEMENT I saw and evaluated the patient. I reviewed the resident's note and discussed the case with the resident. I agree with the resident's findings and plan as documented. SUBJECTIVE: Comfortable no c/o chest pain or SOb OBJECTIVE: Vital Signs Temperature 97.9 F 10/22/18 05:35 Pulse Rate 70 10/22/18 05:35 Respiratory Rate 18 10/22/18 05:35 Blood Pressure 136/90 10/22/18 05:35 O2 Sat by Pulse Oximetry (%) 98 10/22/18 07:35 comfortable not in distress HEENT: Sebarhhoric Dermatitis/Psoriasis on the scalp Mm moist, no anemia NECK No JVd No Bruit CHEST: point tenderness on 3rd Costochondral junction CVS: S1S2 R no m/g/r ABD: Non tender Bs + EXT: No edema feet no calf tenderness IN [employer]: AOX3 non focal CBC, BMP 10/22/18 06:47 10/22/18 06:47 Active Medications Chlordiazepoxide HCl (Librium -) 10 mg PO Q12H PRN PRN Reason: Signs/symptoms of Withdrawal Stop: 10/23/18 23:59 Chlordiazepoxide HCl (Librium -) 15 mg PO Q8H [facility] Stop: 10/22/18 21:01 Last Admin: 10/22/18 05:33 Dose: 15 mg Chlordiazepoxide HCl (Librium -) 10 mg PO Q8H [facility] Stop: 10/23/18 21:01 Chlordiazepoxide HCl (Librium -) 10 mg PO ONCE ONE Stop: 10/24/18 05:01 Chlordiazepoxide HCl (Librium -) 10 mg PO Q8H PRN PRN Reason: Signs/symptoms of Withdrawal Stop: 10/22/18 23:59 Folic Acid (Folic Acid -) 1 mg PO DAILY [facility] Lactated Ringer's (Lactated Ringers Solution) 1,000 ml in 1,000 mls @ 100 mls/ hr IV ASDIR [facility] Last Admin: 10/21/18 23:03 Dose: 100 mls/hr Insulin Aspart (Novolog Vial Sliding Scale -) 1 vial SQ TIDAC [facility]; Protocol Last Admin: 10/22/18 07:01 Dose: Not Given Lisinopril (Prinivil) 20 mg PO DAILY [facility] Thiamine HCl (Vitamin B1 Injection -) 200 mg IVPB Q24H [facility] Last Admin: 10/21/18 23:27 Dose: 200 mg ASSESSMENT AND PLAN: 38 y/o male presenting with chest pain and symptoms of ETOH WD; initial troponin negative with no EKG changes with pain similar to prior presentations; Chest Pain: atypical localized tenderness aggravates with deep breathing serial EKGs and CE are normal, ECHO normal, unlimited ET 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 ETOH: Binge drinking unlikely withdrawal goes to work Sun to Sunday without drinking drinks only on Sundays , LFTs normal, BMP normal, low Mag repleted Dc Librium protocol . T2DM; educted risk of lactic acidosis on ETOH abuse HTN: resume home meds Nausea/Vomiting: ETOH induced add Famotisdine
[2018-10-22 08:55] VITALS: TEMP 98.2
[2018-10-22] MEDS ORDERED: LISINOPRIL 20 MG TABLET (FP) PO SCH (10:00)
[2018-10-22] MEDS ORDERED: FOLIC ACID 1 MG TABLET (FP) PO SCH (10:00)
--- NOTE | 2018-10-22 11:26 | EKG ---
Test Reason : Blood Pressure : / mmHG Vent. Rate : 104 BPM Atrial Rate : 104 BPM P-R Int : 172 ms QRS Dur : 088 ms QT Int : 348 ms P-R-T Axes : 036 063 031 degrees QTc Int : 457 ms SINUS TACHYCARDIA OTHERWISE NORMAL ECG WHEN COMPARED WITH ECG OF 18-MAR-2017 23:15, NO SIGNIFICANT CHANGE WAS FOUND Confirmed by Scottie Lamas MD ([id number]) on 10/22/2018 11:26:01 AM Referred By: Confirmed By:Scottie Lamas MD
--- NOTE | 2018-10-22 12:51 | ECHO ---
Name: MANJINDER PERDOMO Exam:Adult Echocardiogram Study Date: 10/22/2018 08:10 AM Age: 38 yrs Reason For Study: R/O ACS Height: 66 in Weight: 236 lb BSA: 2.1 m2 MMode/2D Measurements & Calculations IVSd: 1.4 cm ACS: 2.1 cm LVIDd: 3.6 cm LVIDs: 2.6 cm LVPWd: 1.4 cm EDV(Teich): 54.4 ml LVOT diam: 2.0 cm ESV(Teich): 24.3 ml Doppler Measurements & Calculations MV E max gilmer: 84.4 cm/sec Ao V2 max: 225.3 cm/sec MV A max gilmer: 83.4 cm/sec Ao max P.3 mmHg MV E/A: 1.0 Ao V2 mean: 133.9 cm/sec Ao mean P.1 mmHg Ao V2 VTI: 42.4 cm NAVNEET(I,D): 1.9 cm2 NAVNEET(V,D): 1.7 cm2 LV V1 max P.2 mmHg SV(LVOT): 82.2 ml LV V1 mean P.2 mmHg LV V1 max: 124.4 cm/sec LV V1 mean: 82.7 cm/sec LV V1 VTI: 26.5 cm Med Peak E' Gilmer: 10.6 cm/sec Med E/e': 7.9 Lat Peak E' Gilmer: 9.7 cm/sec Lat E/e': 8.7 Procedure A two-dimensional transthoracic echocardiogram with color flow and Doppler was performed. The patient was in normal sinus rhythm during the exam. Left Ventricle Left ventricular systolic function is normal. Ejection Fraction = 55%. Left Ventricular Filling patte rn is normal for age. Right Ventricle The right ventricle is normal size. The right ventricular systolic function is normal. Atria The left atrial size is normal. Mitral Valve The mitral valve is normal. There is no mitral regurgitation noted. Tricuspid Valve The tricuspid valve is normal. No tricuspid regurgitation. Aortic Valve The aortic valve is not well visualized. No hemodynamically significant valvular aortic stenosis. Tra ce aortic regurgitation. Pulmonic Valve The pulmonic valve is not well seen, but is grossly normal. There is no pulmonic valvular regurgitati on. Great Vessels The aortic root is normal size. Pericardium/Pleura There is no pericardial effusion. Interpretation Summary Left ventricular systolic function is normal. The right ventricular systolic function is normal. Trace aortic regurgitation. There is no pericardial effusion. MD Zaafr Alfaro 10/22/2018 12:51 PM
[2018-10-22] MEDS ORDERED: MAGNESIUM SULF 50% (8.12 MEQ/2 ML-1 GM VIAL) IVPB ONE (13:45)
[2018-10-22] MEDS ORDERED: MAGNESIUM 1GM/D5W - 1 GM/100 ML IVPB IVPB ONE (16:14)
[2018-10-22 16:30] VITALS: BP 130/91; PULSE 66
[2018-10-22] MEDS ORDERED: MELATONIN 5 MG TABLETS PO SCH (22:00)
[2018-10-23] MEDS ORDERED: chlordiazePOXIDE 5 MG CAPSULE PO PRN
[2018-10-23] MEDS ORDERED: chlordiazePOXIDE 5 MG CAPSULE PO SCH (05:00)
--- NOTE | 2018-10-23 06:59 | DS ---
Physical Exam: SUBJECTIVE: Patient seen and examined at bedside in the ED. OBJECTIVE: Vital Signs Period Temp Pulse Resp BP Sys/Thurman Pulse Ox Last 24 Hr 98.2 F 66-93 16-18 130-180/91-100 95-100 PHYSICAL EXAM GENERAL: The patient is awake, alert, and fully oriented, in no acute distress. 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 EYES: b/l erythema from chemical injury in past NECK: supple. LUNGS: Breath sounds equal, clear to auscultation bilaterally, no wheezes, no crackles, no accessory muscle use. HEART: Regular rate and rhythm, S1, S2 without murmur, rub or gallop. ABDOMEN: Soft, nontender, nondistended, no guarding, no rebound. EXTREMITIES: warm, well-perfused, no edema. NEUROLOGICAL: Cranial nerves II through XII grossly intact. Normal speech, gait not observed. PSYCH: Normal mood, normal affect. SKIN: Warm, dry, no rashes or lesions noted. LABS Laboratory Results - last 24 hr 10/22/18 10/22/18 10/22/18 06:47 06:47 06:47 WBC 5.8 RBC 4.40 Hgb 14.3 Hct 41.1 MCV 93.4 MCH 32.5 MCHC 34.8 RDW 13.1 Plt Count 144 MPV 8.7 Absolute Neuts (auto) 3.3 Neutrophils % 56.7 D Lymphocytes % 27.9 D Monocytes % 10.5 H D Eosinophils % 4.0 D Basophils % 0.9 Nucleated RBC % 0 Sodium 138 Potassium 3.7 Chloride 104 Carbon Dioxide 28 Anion Gap 7 L BUN 7.4 Creatinine 0.8 Est GFR (CKD-EPI)AfAm 132.27 Est GFR (CKD-EPI)NonAf 114.12 POC Glucometer Random Glucose 100 Calcium 8.9 Magnesium Total Bilirubin 0.7 AST 27 ALT 45 Alkaline Phosphatase 105 Troponin I < 0.02 B-Natriuretic Peptide 20.4 Total Protein 7.4 Albumin 3.8 Hep A IgM Ab Confirm Negative Hep Bs Antigen Negative Hep B Core IgM Ab Negative Hepatitis C Ab (EIA) <0.1 HIV 1&2 Ag/Ab, 4th Gen Non reactive 10/22/18 10/22/18 10/22/18 06:59 11:01 17:15 WBC RBC Hgb Hct MCV MCH MCHC RDW Plt Count MPV Absolute Neuts (auto) Neutrophils % Lymphocytes % Monocytes % Eosinophils % Basophils % Nucleated RBC % Sodium Potassium Chloride Carbon Dioxide Anion Gap BUN Creatinine Est GFR (CKD-EPI)AfAm Est GFR (CKD-EPI)NonAf POC Glucometer 99 108 Random Glucose Calcium Magnesium Cancelled Total Bilirubin AST ALT Alkaline Phosphatase Troponin I B-Natriuretic Peptide Total Protein Albumin Hep A IgM Ab Confirm Hep Bs Antigen Hep B Core IgM Ab Hepatitis C Ab (EIA) HIV 1&2 Ag/Ab, 4th Gen HOSPITAL COURSE: Date of Admission:10/21/18 This is a 38 y/o M with a PMH of psoriasis, HTN, T2DM and chronic alcohol use who presents with left-sided chest pain x1 day, nausea, and vomiting s/p binge drinking. Pt was placed on librium protocol. CIWAS score was consistently 0. Pt had negative troponins and normal EKG, dx with atypical pinpoint chest achiness reproducible on palpation. He was stable for d/c. Pt was to follow up with his PCP for management of his psoriasis and to abstain from alcohol. Date of Discharge: 10/23/18 Minutes to complete discharge: 35 Discharge Summary Reason For Visit: ALCOHOL WITHDRAWAL SYNDROME, CHEST PAIN Current Active Problems Alcohol withdrawal (Acute) Chest pain (Acute) Condition: Stable - Instructions Diet, Activity, Other Instructions: You were admitted for having chest pain. You underwent a full heart workup consisting of a series of blood tests (troponins) and imaging (EKG/echo) were all found to be normal, which concludes that this is most likely not related to your heart. You have a chronic alcohol use history so we gave you a medicine to help decrease your withdrawal symptoms while you were here. Your symptoms improved throughout your hospital stay. You are now being discharged home. - Please continue your home medications as prescribed. - You should follow up with your primary care doctor, Dr. Da Silva in 1 week. Please mention that you need treatment for your psoriasis. - You should not drink alcohol anymore, as it can affect your heart, brain, kidney and more organs if you continue to drink. - You should return to the emergency room if you have worsening of your current symptoms, or: chest pain, shortness of breath, fevers, chills, vomiting Referrals: Maricruz Rodriges MD [Primary Care Provider] - Disposition: HOME - Home Medications Comprehensive Discharge Medication List: Ambulatory Orders metFORMIN HCL [Metformin HCl] 500 mg PO BID 07/30/16 Folic Acid - 1 mg PO DAILY 10/22/18 Lisinopril 20 mg PO DAILY 10/22/18 Melatonin 5 mg PO HS 10/22/18 Thiamine Mononitrate [Vitamin B-1] 100 mg PO DAILY 10/22/18 This patient is new to me today: Yes Date on this admission: 10/23/18 Emergency Visit: Yes ED Registration Date: 10/21/18 Care time: The patient presented to the Emergency Department on the above date and was hospitalized for further evaluation of their emergent condition. Critical Care patient: No - Discharge Referral Referred to [facility] Med [facility] No ATTENDING PHYSICIAN STATEMENT I saw and evaluated the patient. I reviewed the resident's note and discussed the case with the resident. I agree with the resident's findings and plan as documented. SUBJECTIVE: OBJECTIVE: ASSESSMENT AND PLAN:
[2018-10-23] MEDS ORDERED: FOLIC ACID 1 MG TABLET (FP) PO SCH (10:00)
[2018-10-23] MEDS ORDERED: PATIENT'S OWN MEDICATION (NON-FORMULARY) (Thiamine Mononitrate [Vitamin B-1] 100 MG) PO SCH (10:00)
[2018-10-24] MEDS ORDERED: chlordiazePOXIDE 5 MG CAPSULE PO ONE (05:00)
== END 2018-10-22 20:28 | disposition home or self-care (01) | DRG 775 ==
LOC: JER 15:31 → JERBED 22:10 → OBSVTOIN 23:01
PROVIDERS: ADMIT Internal Medicine; ATTEND Internal Medicine
PROC: HZ2ZZZZ Detoxification Services for Substance Abuse Treatment (ICD-10-PCS; principal; 2018-10-21)
DX: F10.239 Alcohol dependence with withdrawal, unspecified (principal); R07.89 Other chest pain; R00.0 Tachycardia, unspecified; I10 Essential (primary) hypertension; E11.9 Type 2 diabetes mellitus without complications; E83.42 Hypomagnesemia; R11.2 Nausea with vomiting, unspecified
CPT/HCPCS: 36415; 71046-TC-FY; 76705-TC; 80053; 80074; 80307; 82550; 82553; 82962; 83735; 83880; 84484; 85025; 85610; 87389; 93005; 93010; 93306-TC; 99285-25; G0378; J7030

== ENCOUNTER 2019-08-27 04:55 | Emergency (ER) | payer SELFPAY ==
--- NOTE | 2019-08-27 05:08 | PDOC ---
History of Present Illness - General Chief Complaint: Blood Pressure Problem Stated Complaint: HIGH BP Time Seen by Provider: 08/27/19 05:07 - History of Present Illness Initial Comments: 08/27/19 05:19 The patient is a 38 year old male with a history of HTN, DM who presents for evaluation of insomnia, flank pain and abdominal pain. The patient reports a 2 day history of insomnia. He noted development of left flank pain with associated suprapubic abdominal discomfort prompting his presentation to the ED for further evaluation. He also notes that he has been feeling "shaky" and endorses drinking 12 beers 4 days ago. He otherwise denies fevers, chills, SOB, chest pain, nausea, vomiting, or changes with urination or bowel movements. Past History - Medical History Allergies/Adverse Reactions: Allergies Allergy/AdvReac Type Severity Reaction Status Date / Time No Known Allergies Allergy Verified 08/27/19 05:03 Home Medications: Ambulatory Orders metFORMIN HCL [Metformin HCl] 500 mg PO BID 07/30/16 Folic Acid - 1 mg PO DAILY 10/22/18 Lisinopril 20 mg PO DAILY 10/22/18 Melatonin 5 mg PO HS 10/22/18 Thiamine Mononitrate [Vitamin B-1] 100 mg PO DAILY 10/22/18 COPD: No Diabetes: Yes HTN: Yes - Immunization History Immunization Up to Date: Yes - Psycho-Social/Smoking History Smoking History: Never smoked Have you smoked in the past 12 months: No Number of Cigarettes Smoked Daily: 5 If you are a former smoker, when did you quit?: 05/2015 Information on smoking cessation initiated: No 'Breaking Loose' booklet given: 05/17/16 - Substance Abuse Hx (Audit-C & DAST Scrn) How often the patient has a drink containing alcohol: Monthly or less Number of drinks the patient has on a typical day: 1 or 2 How often the patient has six or more drinks on one occasion: Less than monthly Score: In Men: 4 or > Positive; In Women: 3 or > Positive: 2 Screen Result (Pos requires Nsg. Audit-10AR): Negative In the last yr the pt used illegal drug/Rx for NonMed reason: No Score: Yes response is considered Positive: 0 Screen Result (Positive result requires Nsg. DAST-10): Negative Review of Systems - Review of Systems Comments:: 08/27/19 05:21 Constitutional: No fevers, chills, fatigue, malaise HEENT: No Rhinorrhea, nasal congestion, visual changes Cardiovascular: No chest pain, syncope, palpitations, lightheadedness Respiratory: No Cough, SOB, Hemoptysis, Gastrointestinal: Suprapubic abdominal discomfort. No Nausea, Vomiting, Constipation, Diarrhea, Melena Genitourinary: Left Flank pain. No Dysuria, Frequency, Urgency, Hesitancy, Hematuria, Musculoskeletal: No Myalgia, arthralgia Skin: No rashes, itching, bruising, pallor Neurologic: No Headache, Dizziness, Numbness, Weakness, or Tingling Psychiatric: Insomnia. No Hallucinations. No SI or HI *Physical Exam - Vital Signs Last Vital Signs Temp Pulse Resp BP Pulse Ox 98.6 F 87 20 144/89 99 08/27/19 05:01 08/27/19 05:01 08/27/19 05:01 08/27/19 05:01 08/27/19 05:01 - Physical Exam 08/27/19 05:22 General Appearance: Nourished. Tremulous on exam. No Apparent Distress HEENT: EOMI, KRISTEN. No Pharyngeal Erythema, Tonsillar Exudate, Tonsillar Erythema Neck: No Cervical Lymphadenopathy Respiratory/Chest: Lungs Clear, Normal Breath Sounds. No Crackles, Rales, Rhonchi, Wheezing Cardiovascular: Regular Rhythm, Regular Rate. No Murmur, Gallops, Rubs Gastrointestinal/Abdominal: Normal Bowel Sounds, Soft. No Guarding, Rebound, Tenderness Musculoskeletal: No CVA Tenderness Extremity: Normal Capillary Refill Integumentary: Normal Color, Dry, Warm Neurologic: security delivery specialist II-XII NML intact, Fully Oriented, Alert, Normal Mood/Affect, Normal Response, ED Treatment Course - LABORATORY CBC & Chemistry Diagram: 08/27/19 05:50 08/27/19 05:50 Medical Decision Making - Medical Decision Making 08/27/19 05:22 The patient is a 38 year old male with a history of HTN, DM who presents for evaluation of insomnia, flank pain and abdominal pain. Differential includes but is not limited to: UTI, Alcohol withdrawl, infectious, Metabolic derangement. Given the patient's history and physical exam, we will obtain a cbc, cmp, troponin, lipase, ua, ekg to evaluate further. We will treat with librium and continue to monitor and reassess while here in the ED. 08/27/19 8:09 Patient signed out to the day team pending lab results, reassessment, and dispo. Discharge - Discharge Information Problems reviewed: Yes Clinical Impression/Diagnosis: Alcohol dependence Qualifiers: Substance use status: unspecified alcohol-induced disorder Qualified Code(s): F10.29 - Alcohol dependence with unspecified alcohol-induced disorder Condition: Improved Disposition: HOME - Follow up/Referral Referrals: Maricruz Rodriges MD [Primary Care Provider] - - Patient Discharge Instructions Patient Printed Discharge Instructions: Alcohol and Stress: There are Safer Ways to [place], DI for High Blood Pressure, How to Monitor Your Blood Pressure at Home Additional Instructions: Return to the ED for new or worsening symptoms. You should follow up with your PMD. Print Language: KHMER - Post Discharge Activity
[2019-08-27] MEDS ORDERED: chlordiazePOXIDE HCL 25 MG CAPSULE PO ONE (05:18)
[2019-08-27] MEDS ORDERED: SODIUM CHLORIDE 1,000 ML IV STA (05:23)
[2019-08-27 05:30] VITALS: TEMP 98.6; BMI 37.9
[2019-08-27] MEDS ORDERED: chlordiazePOXIDE HCL 25 MG CAPSULE ONE (06:06)
[2019-08-27 06:49] LABS: BASO % 0.8 % (0-2.0); EOS % 1.5 % (0-4.5); HEMATOCRIT 43.8 % (35.4-49); HEMOGLOBIN 15.5 GM/dL (11.7-16.9); LYMPH % 22.6 % (8-40); MCHC 35.3 g/dl (32.0-35.9); MEAN CELL VOLUME 90.6 fl (80-96); MEAN PLT VOLUME 9.2 fl (7.5-11.1); MONO % 8.3 % (3.8-10.2); NEUT % 66.8 % (42.8-82.8); PLATELET COUNT 151 K/MM3 (134-434); RBC 4.84 M/mm3 (4.00-5.60); RDW 13.5 % (11.9-15.9); WHITE BLOOD COUNT 7.4 K/mm3 (4.0-10.0)
[2019-08-27 07:00] LABS: ALBUMIN 4.5 g/dl (3.4-5.0); ALK PHOS 117 U/L (45-117); ANION GAP 11 MMOL/L (8-16); BILIRUBIN,TOTAL 1.2 mg/dL (0.2-1); BLOOD UREA NITROGEN 12.4 mg/dL (7-18); CALCIUM 9.1 mg/dL (8.5-10.1); CHLORIDE 90 mmol/L (98-107); CO2 29 mmol/L (21-32); GLUCOSE,RANDOM 107 mg/dL (74-106); LIPASE 128 U/L (73-393); POTASSIUM 3.4 mmol/L (3.5-5.1); SGOT/AST 55 U/L (15-37); SGPT/ALT 44 U/L (13-61); SODIUM 130 mmol/L (136-145); TOT PROT 8.3 g/dl (6.4-8.2)
[2019-08-27 09:58] LABS: URINE APPEARANCE CLEAR; URINE BILIRUBIN NEGATIVE (NEGATIVE); URINE COLOR YELLOW; URINE GLUCOSE (UA) NEGATIVE (NEGATIVE); URINE KETONE NEGATIVE (NEGATIVE); URINE LEUK ESTERASE NEGATIVE (NEGATIVE); URINE NITRITE NEGATIVE (NEGATIVE); URINE PROTEIN NEGATIVE (NEGATIVE); URINE UROBILINOGEN 0.2 mg/dL (0.2-1.0)
--- NOTE | 2019-08-27 10:15 | PDOC ---
*Physical Exam - Vital Signs Last Vital Signs Temp Pulse Resp BP Pulse Ox 98.6 F 87 20 144/89 99 08/27/19 05:01 08/27/19 05:01 08/27/19 05:01 08/27/19 05:01 08/27/19 05:01 ED Treatment Course - LABORATORY CBC & Chemistry Diagram: 08/27/19 05:50 08/27/19 05:50 - ADDITIONAL ORDERS Additional order review: Laboratory Results 08/27/19 08/27/19 09:40 05:50 Sodium 130 L Potassium 3.4 L Chloride 90 L Carbon Dioxide 29 Anion Gap 11 BUN 12.4 Creatinine 1.0 Est GFR (CKD-EPI)AfAm 110.94 Est GFR (CKD-EPI)NonAf 95.72 Random Glucose 107 H Calcium 9.1 Total Bilirubin 1.2 H AST 55 H ALT 44 Alkaline Phosphatase 117 Creatine Kinase 389 H Creatine Kinase Index 0.5 CK-MB (CK-2) 2.2 Troponin I < 0.02 Total Protein 8.3 H Albumin 4.5 Lipase 128 Urine Color Yellow Urine Appearance Clear Urine pH 8.0 D Ur Specific [place] 1.006 L Urine Protein Negative Urine Glucose (UA) Negative Urine Ketones Negative Urine Blood Negative Urine Nitrite Negative Urine Bilirubin Negative Urine Urobilinogen 0.2 Ur Leukocyte Esterase Negative 08/27/19 05:50 RBC 4.84 MCV 90.6 MCHC 35.3 RDW 13.5 MPV 9.2 Neutrophils % 66.8 Lymphocytes % 22.6 Monocytes % 8.3 Eosinophils % 1.5 Basophils % 0.8 - Medications Given in the ED: ED Medications Discontinued Medications Generic Name Dose Route Start Last Admin Trade Name [place] PRN Reason Stop Dose Admin Chlordiazepoxide HCl 25 mg 08/27/19 05:18 08/27/19 06:10 Librium - PO 08/27/19 05:19 25 mg ONCE ONE Administration Sodium Chloride 1,000 mls @ 1,000 mls/hr 08/27/19 05:23 08/27/19 06:20 Normal Saline - IV 08/27/19 06:22 1,000 mls/hr ASDIR STA Administration ED Progress Note - Progress Note Progress Note: 08/27/19 10:12 Pt. recieved on signout. Labs and urine reviewed and unremarkable. Pt. reports his pain has resolved and that the IVF helped him and he was able to sleep. Will d/c with return precautions. Pt. states he will f/u with his PMD tomorrow. Pt. verbalizd his understanding and is agreeable to plan. Discharge - Discharge Information Problems reviewed: Yes Clinical Impression/Diagnosis: Alcohol dependence Qualifiers: Substance use status: unspecified alcohol-induced disorder Qualified Code(s): F10.29 - Alcohol dependence with unspecified alcohol-induced disorder Condition: Improved Disposition: HOME - Admission No - Follow up/Referral Referrals: Maricruz Rodriges MD [Primary Care Provider] - - Patient Discharge Instructions Patient Printed Discharge Instructions: DI for High Blood Pressure, How to Monitor Your Blood Pressure at Home, Alcohol and Stress: There are Safer Ways to [place] Additional Instructions: Return to the ED for new or worsening symptoms. You should follow up with your PMD. Print Language: LITHUANIAN - Post Discharge Activity
[2019-08-27 11:41] VITALS: BP 106/68; PULSE 76
--- NOTE | 2019-08-27 12:40 | EKG ---
Test Reason : Blood Pressure : / mmHG Vent. Rate : 082 BPM Atrial Rate : 082 BPM P-R Int : 184 ms QRS Dur : 090 ms QT Int : 376 ms P-R-T Axes : 035 061 009 degrees QTc Int : 439 ms NORMAL SINUS RHYTHM NONSPECIFIC T WAVE ABNORMALITY ABNORMAL ECG WHEN COMPARED WITH ECG OF 21-OCT-2018 15:48, NO SIGNIFICANT CHANGE WAS FOUND Confirmed by MD FCO, CHRISTIAN ([id number]) on 08/27/2019 12:39:39 PM Referred By: Confirmed By:CHRISTIAN EAGLE MD
== END 2019-08-27 11:35 | disposition home or self-care (01) ==
LOC: JER 04:55
PROC: 3E0337Z Introduction of Electrolytic and Water Balance Substance into Peripheral Vein, Percutaneous Approach (ICD-10-PCS; principal; 2019-08-27)
DX: F10.29 Alcohol dependence with unspecified alcohol-induced disorder (principal)
CPT/HCPCS: 36415; 80053; 81003; 82550; 82553; 83690; 84484; 85025; 93005; 93010; 99284-25

== ENCOUNTER 2021-09-11 09:54 | Emergency (ER) | payer SELFPAY ==
[2021-09-11 10:02] VITALS: BP 150/86; PULSE 91; TEMP 98.3; BMI 32.5
== END 2021-09-11 10:44 | disposition home or self-care (01) ==
LOC: JER 09:54
DX: H65.22 Chronic serous otitis media, left ear (principal); H60.92 Unspecified otitis externa, left ear
CPT/HCPCS: 99283-25

== ENCOUNTER 2021-09-12 20:25 | Emergency (ER) | payer SELFPAY ==
[2021-09-12 20:35] VITALS: BP 126/86; PULSE 96; TEMP 98.2; BMI 31.6
[2021-09-12] MEDS ORDERED: MECLIZINE HCL 25 MG TABLET (FP) PO ONE (20:51)
[2021-09-12] MEDS ORDERED: MECLIZINE HCL 25 MG TABLET (FP) ONE (20:53)
== END 2021-09-12 22:10 | disposition home or self-care (01) ==
LOC: JER 20:25 → JERFT 20:25
DX: R55 Syncope and collapse (principal)
CPT/HCPCS: 82962; 93005; 93010; 99283-25

== ENCOUNTER 2022-01-09 23:10 | Emergency (ER) | payer SELFPAY ==
[2022-01-09 23:17] VITALS: TEMP 97.7; BMI 36.9
[2022-01-10 03:15] LABS: URINE APPEARANCE CLEAR; URINE BILIRUBIN NEGATIVE (NEGATIVE); URINE COLOR ORANGE; URINE GLUCOSE (UA) NEGATIVE (NEGATIVE); URINE KETONE NEGATIVE (NEGATIVE); URINE LEUK ESTERASE NEGATIVE (NEGATIVE); URINE NITRITE NEGATIVE (NEGATIVE); URINE PROTEIN NEGATIVE (NEGATIVE)
[2022-01-10] MEDS ORDERED: SODIUM CHLORIDE 0.9% 500 ML INFUS.BAG IV ONE (05:35)
[2022-01-10] MEDS ORDERED: ACETAMINOPHEN 1000 MG/100 ML BAG IVPB ONE (05:35)
[2022-01-10] MEDS ORDERED: ACETAMINOPHEN INJECTION 100 ML IVPB ONE (06:01)
[2022-01-10 06:38] LABS: EOS % 4.6 % (0-4.5); HEMATOCRIT 44.2 % (35.4-49); HEMOGLOBIN 15.4 GM/dL (11.7-16.9); LYMPH % 21.7 % (8-40); MCH 32.4 pg (25.7-33.7); MCHC 34.7 g/dl (32.0-35.9); MEAN CELL VOLUME 93.2 fl (80-96); MEAN PLT VOLUME 9.4 fl (7.5-11.1); MONO % 8.6 % (3.8-10.2); NEUT % 64.1 % (42.8-82.8); PLATELET COUNT 124 10^3/uL (134-434); RBC 4.75 M/mm3 (4.00-5.60); RDW 13.3 % (11.9-15.9); WHITE BLOOD COUNT 7.5 K/mm3 (4.0-10.0)
[2022-01-10 06:47] LABS: ALBUMIN 4.2 g/dl (3.4-5.0); CALCIUM 9.1 mg/dL (8.5-10.1)
[2022-01-10 06:48] LABS: BLOOD UREA NITROGEN 11.4 mg/dL (7-18); INR 1.16 (0.83-1.09); MAGNESIUM 2.1 mg/dL (1.8-2.4); PROTHROMBIN TIME (PATIENT) 13.4 SEC (9.7-13.0)
[2022-01-10 06:50] LABS: CREATININE 0.8 mg/dL (0.55-1.3)
[2022-01-10 06:51] LABS: ACTIVATED PTT 32.4 SECONDS (25.2-36.5)
[2022-01-10 06:52] LABS: BILIRUBIN,TOTAL 1.8 mg/dL (0.2-1); TOT PROT 8.4 g/dl (6.4-8.2)
[2022-01-10 08:32] VITALS: BP 137/91; PULSE 78; RESP 20
== END 2022-01-10 11:00 | disposition home or self-care (01) ==
LOC: JER 23:10
PROC: 3E0333Z Introduction of Anti-inflammatory into Peripheral Vein, Percutaneous Approach (ICD-10-PCS; principal; 2022-01-09)
DX: R10.9 Unspecified abdominal pain (principal)
CPT/HCPCS: 0241U-QW; 36415; 74177-TC; 80053; 81003; 83690; 83735; 84484; 85025; 85610; 85730; 93005; 93010; 99285-25; Q9967

== ENCOUNTER 2024-01-19 05:25 | Emergency (ER) | payer SELFPAY ==
[2024-01-19 05:30] VITALS: RESP 18; BMI 39.1
[2024-01-19] MEDS ORDERED: ACETAMINOPHEN INJECTION 100 ML ONE (06:11)
[2024-01-19] MEDS: ACETAMINOPHEN 1000 MG/100 ML BAG IVPB ONE (06:32)
[2024-01-19 06:46] LABS: BASO % 3.2 % (0-2.0); EOS % 6.9 % (0-4.5); HEMATOCRIT 43.9 % (35.4-49); MCH 33.1 pg (25.7-33.7); MCHC 34.3 g/dl (32.0-35.9); MEAN CELL VOLUME 96.5 fl (80-96); MONO % 11.1 % (3.8-10.2); NEUT % 61.8 % (42.8-82.8); PLATELET COUNT 87 10^3/uL (134-434); RBC 4.55 M/mm3 (4.00-5.60); RDW 13.7 % (11.9-15.9); WHITE BLOOD COUNT 6.8 K/mm3 (4.0-10.0)
[2024-01-19 06:48] LABS: INR 1.17 (0.83-1.09); PROTHROMBIN TIME (PATIENT) 13.4 SEC (9.7-13.0)
[2024-01-19 06:51] LABS: ACTIVATED PTT 37.8 SECONDS (25.2-36.5)
[2024-01-19 07:05] LABS: POTASSIUM 3.9 mmol/L (3.5-5.1)
[2024-01-19 07:07] LABS: ALBUMIN 3.7 g/dl (3.4-5.0); CALCIUM 8.8 mg/dL (8.5-10.1)
[2024-01-19 07:11] LABS: CREATININE 0.8 mg/dL (0.55-1.3)
[2024-01-19 07:12] LABS: BILIRUBIN,TOTAL 2.4 mg/dL (0.2-1)
[2024-01-19 08:03] LABS: URINE APPEARANCE CLEAR; URINE BILIRUBIN 1+ (NEGATIVE); URINE COLOR DK YELLOW; URINE GLUCOSE (UA) NEGATIVE (NEGATIVE); URINE KETONE TRACE (NEGATIVE); URINE LEUK ESTERASE NEGATIVE (NEGATIVE); URINE NITRITE NEGATIVE (NEGATIVE); URINE PROTEIN NEGATIVE (NEGATIVE)
[2024-01-19] MEDS: chlordiazePOXIDE HCL 25 MG CAPSULE PO ONE (08:05)
[2024-01-19 10:34] VITALS: BP 140/95; PULSE 78; TEMP 98
[2024-01-19] MEDS ORDERED: chlordiazePOXIDE HCL 25 MG CAPSULE ONE (13:48)
== END 2024-01-19 14:14 | disposition home or self-care (01) ==
LOC: JER 05:25
PROC: 3E033NZ Introduction of Analgesics, Hypnotics, Sedatives into Peripheral Vein, Percutaneous Approach (ICD-10-PCS; principal; 2024-01-19)
DX: R10.84 Generalized abdominal pain (principal); Z20.822 Contact with and (suspected) exposure to COVID-19
CPT/HCPCS: 0241U-QW; 36415; 74177-TC; 80053; 81003; 85025; 85610; 85730; 86850; 86900; 86901; 87086; 99285-25; J0131

== ENCOUNTER 2024-05-31 15:11 | Emergency (ER) | payer OTHER ==
[2024-05-31 15:19] VITALS: BP 133/77; PULSE 100; RESP 18; TEMP 98.7; BMI 34.5
[2024-05-31] MEDS ORDERED: KETOROLAC TROMETHAMINE 30 MG/1 ML VIAL ONE (15:44)
[2024-05-31] MEDS: SODIUM CHLORIDE 0.9% 500 ML INFUS.BAG IV ONE (16:08)
[2024-05-31] MEDS: KETOROLAC TROMETHAMINE 30 MG/1 ML VIAL IVPUSH ONE (16:08)
[2024-05-31] MEDS: ACETAMINOPHEN 1000 MG/100 ML BAG IVPB ONE (16:10)
[2024-05-31 16:21] LABS: ABSOLUTE IMMATURE GRANULOCYTES 0.01 x10^3/uL (0.0-0.031); BASOPHILS # 0.06 x10^3/uL (0.01-0.08); EOSINOPHIL % 0.6 % (0.8-7.0); EOSINOPHILS # 0.04 x10^3/uL (0.04-0.54); HEMATOCRIT 38.1 % (40.1-51.0); HEMOGLOBIN 13.5 g/dL (13.7-17.5); MCHC 35.4 g/dl (32.3-36.5); MEAN CELL VOLUME 90.7 fl (79.0-92.2); MEAN PLT VOLUME 11.1 fl (9.4-12.4); MONOCYTE # 0.33 x10^3/uL (0.30-0.82); MONOCYTE % 5.3 % (5.3-12.2); PLATELET COUNT # 65 x10^3/uL (163-337); RDW 12.7 % (12.1-15.9)
[2024-05-31 16:24] LABS: URINE APPEARANCE CLEAR; URINE BILIRUBIN NEGATIVE (NEGATIVE); URINE COLOR YELLOW; URINE GLUCOSE (UA) NEGATIVE (NEGATIVE); URINE KETONE NEGATIVE (NEGATIVE); URINE LEUK ESTERASE NEGATIVE (NEGATIVE); URINE NITRITE NEGATIVE (NEGATIVE); URINE PROTEIN NEGATIVE (NEGATIVE)
[2024-05-31 16:42] LABS: POTASSIUM 3.9 mmol/L (3.5-5.1)
[2024-05-31 16:43] LABS: CALCIUM 8.4 mg/dL (8.5-10.1)
[2024-05-31 16:44] LABS: ALBUMIN 3.6 g/dl (3.4-5.0)
[2024-05-31 16:47] LABS: CREATININE 0.7 mg/dL (0.55-1.3)
[2024-05-31 16:49] LABS: BILIRUBIN,TOTAL 1.2 mg/dL (0.2-1); TOT PROT 7.8 g/dl (6.4-8.2)
[2024-05-31 17:38] LABS: HCV DIAGNOSTIC IN-HOUSE W/RFLX NON-REACTIVE (NONREACTIVE); HIV INTERPRETATION NEGATIVE (NEGATIVE)
== END 2024-05-31 18:30 | disposition home or self-care (01) ==
LOC: JER 15:11
PROC: 3E0333Z Introduction of Anti-inflammatory into Peripheral Vein, Percutaneous Approach (ICD-10-PCS; principal; 2024-05-31)
DX: M54.6 Pain in thoracic spine (principal); M54.50 Low back pain, unspecified; Z86.2 Personal history of diseases of the blood and blood-forming organs and certain disorders involving the immune mechanism
CPT/HCPCS: 0241U-QW; 36415; 71046-TC-FY; 76775-TC; 80053; 81003; 85025; 86803; 87086; 87389; 99285-25

== ENCOUNTER 2024-07-11 00:16 | Inpatient (IN) | payer OTHER ==
[2024-07-11 00:28] VITALS: BMI 32.9
[2024-07-11] MEDS ORDERED: diazePAM CARPU-JECT 10 MG/2 ML DISP.SYRIN ONE (01:23)
[2024-07-11 01:52] LABS: VENOUS BASE EXCESS 2.3 mmol/L (-2-2); VENOUS O2 SATURATION 74.8 % (70-80); VENOUS PCO2 41.3 mmHg (38-52); VENOUS PH 7.43 (7.310-7.410)
[2024-07-11 01:55] LABS: ABSOLUTE IMMATURE GRANULOCYTES 0.01 x10^3/uL (0.0-0.031); BASOPHILS # 0.06 x10^3/uL (0.01-0.08); EOSINOPHILS # 0.04 x10^3/uL (0.04-0.54); HEMOGLOBIN 13.3 g/dL (13.7-17.5)
[2024-07-11 01:56] LABS: EOSINOPHIL % 0.9 % (0.8-7.0); HEMATOCRIT 37.6 % (40.1-51.0); MCHC 35.4 g/dl (32.3-36.5); MEAN CELL VOLUME 89.1 fl (79.0-92.2); MEAN PLT VOLUME 10.2 fl (9.4-12.4); MONOCYTE # 0.54 x10^3/uL (0.30-0.82); MONOCYTE % 12.6 % (5.3-12.2); PLATELET COUNT 56 x10^3/uL (163-337); RDW 13.2 % (12.1-15.9)
[2024-07-11] MEDS: diazePAM CARPU-JECT 10 MG/2 ML DISP.SYRIN IVPUSH ONE ×2 (02:10→03:28)
[2024-07-11 02:25] LABS: POTASSIUM 3.9 mmol/L (3.5-5.1)
[2024-07-11 02:27] LABS: CALCIUM 9.3 mg/dL (8.5-10.1)
[2024-07-11 02:28] LABS: ALBUMIN 3.6 g/dl (3.4-5.0); BLOOD UREA NITROGEN 4.4 mg/dL (7-18)
[2024-07-11 02:30] LABS: MAGNESIUM 1.9 mg/dL (1.8-2.4)
[2024-07-11 02:31] LABS: CREATININE 0.6 mg/dL (0.55-1.3)
[2024-07-11 02:33] LABS: BILIRUBIN,TOTAL 1.2 mg/dL (0.2-1); TOT PROT 7.7 g/dl (6.4-8.2)
[2024-07-11] MEDS ORDERED: diazePAM 5 MG TABLET PO PRN (04:26)
[2024-07-11] MEDS ORDERED: THIAMINE HCL 200 MG/2 ML VIAL ONE (04:42)
[2024-07-11] MEDS: THIAMINE HCL 200 MG/2 ML VIAL IVPB ONE (04:57)
[2024-07-11] MEDS: SODIUM CHLORIDE 1,000 ML IV SCH (05:50)
[2024-07-11 06:06] LABS: POTASSIUM 3.6 mmol/L (3.5-5.1)
[2024-07-11 06:08] LABS: CALCIUM 9.2 mg/dL (8.5-10.1)
[2024-07-11 06:09] LABS: ALBUMIN 3.5 g/dl (3.4-5.0); BLOOD UREA NITROGEN 4.7 mg/dL (7-18); MAGNESIUM 1.9 mg/dL (1.8-2.4)
[2024-07-11 06:12] LABS: CREATININE 0.6 mg/dL (0.55-1.3); PHOSPHOROUS 3.8 mg/dL (2.5-4.9)
[2024-07-11 06:13] LABS: BILIRUBIN,TOTAL 1.3 mg/dL (0.2-1); TOT PROT 7.6 g/dl (6.4-8.2)
[2024-07-11 06:25] LABS: HEMATOCRIT 38.4 % (40.1-51.0); MEAN PLT VOLUME 10.7 fl (9.4-12.4)
[2024-07-11 06:27] LABS: HEMOGLOBIN 13.5 g/dL (13.7-17.5); MCHC 35.2 g/dl (32.3-36.5); MEAN CELL VOLUME 89.5 fl (79.0-92.2); PLATELET COUNT 58 x10^3/uL (163-337); RDW 13.2 % (12.1-15.9)
[2024-07-11] MEDS: INSULIN ASPART SLIDING SCALE (NOVOLOG) 1 VIAL SQ SCH (06:28)
[2024-07-11] MEDS: FOLIC ACID INJECTION - 1 MG, THIAMINE HCL 100 MG, MULTIVIT INJECTION ADULT 10 ML in SOD... IVPB ONE (06:51)
[2024-07-11] MEDS: LISINOPRIL 20 MG TABLET PO SCH (09:22)
[2024-07-11] MEDS: FOLIC ACID 1 MG TABLET (FP) PO SCH (09:22)
[2024-07-11] MEDS: THIAMINE 100 MG TABLET PO SCH (09:23)
[2024-07-11] MEDS: LORATADINE 10 MG TABLET PO SCH (09:23)
[2024-07-11] MEDS ORDERED: ENOXAPARIN NA (PORCINE) 40 MG/0.4 ML DISP.SYRIN SQ SCH (10:00)
[2024-07-11] MEDS: diazePAM 5 MG TABLET PO SCH (11:49)
[2024-07-11] MEDS ORDERED: LORazepam 1 MG TABLET PO PRN (18:16)
[2024-07-11] MEDS: LACTOBACILLUS ACIDOPHILUS 1 TABLET PO SCH (18:40)
[2024-07-11] MEDS: NAPHAZOLINE/PHENIRAMINE OPHTHALMIC 15 ML BOTTLE OU SCH (21:34)
[2024-07-11] MEDS: levETIRAcetam 250 MG TABLET PO SCH (21:34)
[2024-07-11] MEDS: MELATONIN 5 MG TABLETS PO SCH (21:34)
[2024-07-11] MEDS: LORazepam 1 MG TABLET PO SCH (22:33)
[2024-07-11] MEDS: TRIAMCINOLONE ACET 0.025% CREAM 15 GM TUBE TP SCH (23:20)
[2024-07-12 07:13] LABS: HEMOGLOBIN 13.4 g/dL (13.7-17.5); RDW 13.5 % (12.1-15.9)
[2024-07-12 07:15] LABS: HEMATOCRIT 38.9 % (40.1-51.0); MCHC 34.4 g/dl (32.3-36.5); MEAN PLT VOLUME 11.5 fl (9.4-12.4); PLATELET COUNT 51 x10^3/uL (163-337)
[2024-07-12 07:38] LABS: POTASSIUM 4.2 mmol/L (3.5-5.1)
[2024-07-12 07:47] LABS: ALBUMIN 3.4 g/dl (3.4-5.0)
[2024-07-12 07:48] LABS: BLOOD UREA NITROGEN 7.6 mg/dL (7-18); MAGNESIUM 2.1 mg/dL (1.8-2.4)
[2024-07-12 07:51] LABS: CREATININE 0.6 mg/dL (0.55-1.3); PHOSPHOROUS 4.3 mg/dL (2.5-4.9)
[2024-07-12 07:52] LABS: BILIRUBIN,TOTAL 1.5 mg/dL (0.2-1); TOT PROT 7.2 g/dl (6.4-8.2)
[2024-07-12] MEDS: PANTOPRAZOLE 40 MG TABLET PO SCH (10:02)
[2024-07-12 18:38] VITALS: RESP 18
[2024-07-13] MEDS: LORazepam 1 MG TABLET PO SCH (05:38)
[2024-07-13] MEDS ORDERED: diazePAM 5 MG TABLET PO SCH (06:00)
[2024-07-13 07:19] LABS: POTASSIUM 4.5 mmol/L (3.5-5.1)
[2024-07-13 07:23] LABS: ALBUMIN 3.5 g/dl (3.4-5.0)
[2024-07-13 07:24] LABS: BLOOD UREA NITROGEN 9.9 mg/dL (7-18)
[2024-07-13 07:25] LABS: CALCIUM 8.8 mg/dL (8.5-10.1)
[2024-07-13 07:26] LABS: MAGNESIUM 2.2 mg/dL (1.8-2.4)
[2024-07-13 07:27] LABS: CREATININE 0.7 mg/dL (0.55-1.3); PHOSPHOROUS 4.3 mg/dL (2.5-4.9)
[2024-07-13 07:28] LABS: BILIRUBIN,TOTAL 1.4 mg/dL (0.2-1); TOT PROT 7.6 g/dl (6.4-8.2)
[2024-07-13 10:10] VITALS: BP 136/87; PULSE 86; TEMP 98
[2024-07-14] MEDS ORDERED: LORazepam 0.5 MG TABLET PO PRN
[2024-07-14] MEDS ORDERED: LORazepam 0.5 MG TABLET PO SCH (05:00)
[2024-07-14] MEDS ORDERED: diazePAM 5 MG TABLET PO SCH (06:00)
[2024-07-15] MEDS ORDERED: LORazepam 0.5 MG TABLET PO ONE (05:00)
[2024-07-15] MEDS ORDERED: diazePAM 5 MG TABLET PO ONE (06:00)
== END 2024-07-13 13:19 | disposition home or self-care (01) | DRG 775 ==
LOC: JER 00:16 → JERBED 04:16 → J4W 06:04 → OBSVTOIN 13:55
PROVIDERS: ADMIT Hospitalist; ATTEND Internal Medicine
DX: F10.239 Alcohol dependence with withdrawal, unspecified (principal); I10 Essential (primary) hypertension; E11.9 Type 2 diabetes mellitus without complications; E87.1 Hypo-osmolality and hyponatremia; R16.1 Splenomegaly, not elsewhere classified; D69.6 Thrombocytopenia, unspecified; K70.30 Alcoholic cirrhosis of liver without ascites; K70.10 Alcoholic hepatitis without ascites
CPT/HCPCS: 36415; 71045-TC-FY; 80053; 82436; 82570; 82803; 82962; 83735; 83930; 83935; 84100; 84133; 84300; 84484; 85025; 85027; 93005; 93010; 99285-25; G0378